=== PATIENT | female | born 1965 | race Caucasian/White ===

== ENCOUNTER 2016-12-31 11:07 | Inpatient (IN) | payer OTHER ==
[2016-12-31 11:26] VITALS: BMI 29.4
--- NOTE | 2016-12-31 13:50 | HP ---
COWS - Scale Resting Pulse: 1= [place] 81-100 Sweatin= Chills/Flushing Restless Observation: 3= Extraneous Movement Pupil Size: 2= Moderately Dilated Bone or Joint Aches: 4=Acute Joint/Muscle Pain Runny Nose/ Eye Tearin= Runny Nose/Eyes GI Upset > 30mins: 3= Vomiting/Diarrhea (no diarrhea) Tremor Observation: 1= Tremor [place], Not Seen Yawning Observation: 1= 1-2x During Session Anxiety or Irritability: 2=Irritable/Anxious Goose Flesh Skin: 3=Piloerection COWS Score: 23 Admission ROS S - [facility] Chief Complaint: DETOX TX FOR HEROIN DEPENDENCE Allergies/Adverse Reactions: Allergies Allergy/AdvReac Type Severity Reaction Status Date / Time Penicillins Allergy Verified 12/31/16 13:47 History of Present Illness: 51 Y/O H/F WITH A HX OF HEROIN DEPENDENCE SEEKING DETOX TX. FIRST TIME HERE. Exam Limitations: No Limitations - Ebola screening Have you traveled outside of the country in the last 21 days: No Have you had contact with anyone from an Ebola affected area: No Have you been sick,other than usual withdrawal symptoms: No - Review of Systems Constitutional: Chills, Loss of Appetite, Night Sweats, Changes in sleep EENT: reports: Blurred Vision (WEARS GLASSES), Tearing, Nose Congestion, Dental Problems (HX CAVITIES) Respiratory: reports: Shortness of Breath (HX ASTHMA), Wheezing Cardiac: reports: Lightheadedness GI: reports: Diarrhea, Nausea, Poor Appetite, Vomiting, Abdominal cramping : reports: No Symptoms Reported Musculoskeletal: reports: Back Pain (HX HERNIATED DISC SPINE), Joint Pain, Muscle Pain, Neck Pain (HX HERNIATED DISC OF NECK) Integumentary: reports: Pruritus (DUE TO ALLERGY BUT RESOLVED), Rash (DUE TO ALLERGY BUT RESOLVED) Neuro: reports: Tremors (DUE TO ANXIETY), Unsteady Gait (USES ROLLING WALKER), Dizziness Endocrine: reports: No Symptoms Reported Hematology: reports: No Symptoms Reported Psychiatric: reports: Orientated x3, Anxious, Depressed Other Systems: Reviewed and Negative Patient History - Patient Medical History Hx Anemia: No Hx Asthma: Yes (MDI) Hx Chronic Obstructive Pulmonary Disease (COPD): No Hx Cardiac Disorders: No Hx Hypertension: No (NOT SURE) Hx Hypercholesterolemia: Yes HX Cerebrovascular Accident: No Hx Seizures: No Hx Diabetes: No Hx Gastrointestinal Disorders: Yes (GASTRITIS/PUD) Hx Sexually Transmitted Disorders: No Hx Renal Disease (ESRD): No Hx Thyroid Disease: No Hx Human Immunodeficiency Virus (HIV): No Hx Hepatitis C: No Hx Depression: Yes Hx Suicide Attempt: No Hx Bipolar Disorder: Yes - Patient Surgical History Past Surgical History: No Hx Neurologic Surgery: No Hx Cataract Extraction: No Hx Cardiac Surgery: No Hx Lung Surgery: No Hx Breast Surgery: No Hx Breast Biopsy: No Hx Abdominal Surgery: No Hx Appendectomy: No Hx Cholecystectomy: No Hx Genitourinary Surgery: No Hx Section: No Hx Orthopedic Surgery: No Hx Hysterectomy: No Anesthesia Reaction: No - PPD History Previous Implant?: Yes Documented Results: Negative w/o proof Implanted On Prior R Admission?: No PPD to be Administered?: Yes - Reproductive History Patient is a Female of Child Bearing Age (11 -55 yrs old): Yes (POST MENOPAUSAL) LMP comment: SIX YEARS AGO Patient : No - Smoking Cessation Smoking history: Current every day smoker Have you smoked in the past 12 months: Yes Aproximately how many cigarettes per day: 10 Hx Chewing Tobacco Use: No Initiated information on smoking cessation: Yes 'Breaking Loose' booklet given: 12/31/16 - Substance & Tx. History Hx Alcohol Use: No (DENIES) Hx Substance Use: Yes (HEROIN) Substance Use Type: Heroin Hx Substance Use Treatment: No (FIRST TIME TODAY) - Substances Abused Heroin Route: Inhalation Frequency: Daily Amount used: 3-4 DAYS Age of first use: 50 Date of Last Use: 12/30/16 Family Disease History - Family Disease History Family History: Unable to Obtain Admission Physical Exam S - Vital Signs Vital Signs: Vital Signs - 24 hr 12/31/16 11:19 Temperature 97.1 F L Pulse Rate 81 Respiratory 18 Rate Blood Pressure 123/80 - Physical General Appearance: Yes: Moderate Distress, Obese, Irritable, Sweating, Anxious HEENTM: Yes: EOMI, Normocephalic, PAT, Pharynx Normal, Photophobia, Nasal Congestion, Rhinorrhea Respiratory: Yes: Chest Non-Tender, Lungs Clear, Normal Breath Sounds, No Respiratory Distress Neck: Yes: Supple, Trachea in good position Breast: Yes: Breast Exam Deferred Cardiology: Yes: Regular Rhythm, Regular Rate, S1, S2 Abdominal: Yes: Normal Bowel Sounds, Non Tender, Soft Genitourinary: Yes: Other (N/C) Back: Yes: Within Normal Limits Musculoskeletal: Yes: full range of Motion, Back pain, Muscle Pain, Other (USES WALKER TO AMBULATE) Extremities: Yes: Normal Range of Motion, Non-Tender Neurological: Yes: development officer II-XII NML intact, Fully Oriented, Alert Integumentary: Yes: Dry, Warm Lymphatic: Yes: Within Normal Limits - Diagnostic (1) Opioid dependence with withdrawal Current Visit: Yes Status: Acute (2) Asthma Current Visit: Yes Status: Chronic Qualifiers: Asthma severity: mild intermittent Asthma complication type: uncomplicated Qualified Code(s): J45.20 - Mild intermittent asthma, uncomplicated (3) Hx of gastritis Current Visit: Yes Status: Suspected (4) PUD (peptic ulcer disease) Current Visit: Yes Status: Suspected Cleared for Admission [facility] - Detox or Rehab [facility] Level of Care: Medically Managed Detox Regimen/Protocol: Methadone [facility] Breath Alcohol Content Breath Alcohol Content: 0 Urine Pregancy Test - Result Urine Test Results: Negative- NO Line Present Urine Drug Screen - Results Urine Drug Screen Results: OPI-Opiates, TCA-Tricyclic Antidepress
[2016-12-31] MEDS ORDERED: MAGNESIUM CITRATE 300 ML BOTTLE PO PRN (15:53)
[2016-12-31] MEDS ORDERED: MAG HYDROX/AL HYDROX/SIMETH 30 ML UNIT-DOSE CUP PO PRN (15:53)
[2016-12-31] MEDS ORDERED: MENTHOL/PHENOL 1 EACH UD MM PRN (15:53)
[2016-12-31] MEDS ORDERED: NICOTINE POLACRILEX 2 MG GUM BC PRN (15:53)
[2016-12-31] MEDS ORDERED: ACETAMINOPHEN 325 MG TABLET (FP) PO PRN (15:53)
[2016-12-31] MEDS ORDERED: LOPERAMIDE HCL 2 MG CAPSULE PO PRN (15:53)
[2016-12-31] MEDS ORDERED: P-EPHED 60MG/TRIPROLIDI 2.5MG TABLET PO PRN (15:53)
[2016-12-31] MEDS ORDERED: guaiFENesin/D-METHORPHAN HB 10 ML UNIT-DOSE CUPS PO PRN (15:53)
[2016-12-31] MEDS ORDERED: hydrOXYzine PAMOATE 25 MG CAPSULE (FP) PO PRN (15:53)
[2016-12-31] MEDS ORDERED: MAGNESIUM HYDROX 2400MG/30ML ORAL SUSPENSION 30 ML CUP PO PRN (15:53)
[2016-12-31] MEDS ORDERED: ALBUTEROL SO4 6.7 GM HFA INHALER IH PRN (16:00)
[2016-12-31] MEDS ORDERED: METHADONE HCL 10 MG TABLET (FOR DETOX USE ONLY) PO ONE ×2 (17:15→23:00)
[2016-12-31] MEDS: NICOTINE 14 MG/24 HOURS TOPICAL PATCH TD SCH (17:32)
[2016-12-31] MEDS: diazePAM 5 MG TABLET PO PRN ×2 (17:33→22:21)
[2016-12-31] MEDS: PANTOPRAZOLE 40 MG TABLET (FP) PO SCH (17:33)
[2016-12-31] MEDS: IBUPROFEN 400 MG TABLET (FP) PO PRN (17:33)
[2016-12-31] MEDS: CALCIUM (OYSTER SHELL) 500 MG TABLET (FP) PO SCH (17:50)
[2016-12-31] MEDS: BUDESONIDE/FORMETEROL FUMARATE 160/4.5 mcg INHALER IH SCH (17:51)
[2016-12-31] MEDS: THIAMINE HCL 100 MG TABLET (FP) PO SCH (22:21)
[2017-01-01] MEDS: diazePAM 5 MG TABLET PO PRN ×3 (01:25→22:05)
[2017-01-01] MEDS: diphenhydrAMINE HCL 50 MG CAPSULE PO PRN (01:25)
[2017-01-01] MEDS ORDERED: METHADONE HCL 10 MG TABLET (FOR DETOX USE ONLY) PO ONE (10:00)
[2017-01-01] MEDS: BUDESONIDE/FORMETEROL FUMARATE 160/4.5 mcg INHALER IH SCH (10:33)
[2017-01-01] MEDS: PANTOPRAZOLE 40 MG TABLET (FP) PO SCH (10:33)
[2017-01-01] MEDS: PRENATAL VITAMINS W/ FOLIC ACID TABLET (FP) PO SCH (10:33)
[2017-01-01] MEDS: CALCIUM (OYSTER SHELL) 500 MG TABLET (FP) PO SCH (10:33)
[2017-01-01] MEDS: IBUPROFEN 400 MG TABLET (FP) PO PRN (10:37)
[2017-01-01] MEDS: NICOTINE 14 MG/24 HOURS TOPICAL PATCH TD SCH (10:38)
--- NOTE | 2017-01-01 10:51 | PN ---
[facility] COWS - Scale Resting Pulse: 0= [place] 80 or Below Sweatin=Flushed/Facial Moisture Restless Observation: 1= Difficult to Sit Still Pupil Size: 1= Pupils >than Normal Bone or Joint Aches: 2= Severe Diffuse Aches Runny Nose/ Eye Tearin= Nasal Congestion GI Upset > 30mins: 1= Stomach Cramp Tremor Observation of Outstretched Hands: 1= Tremor [place], Not Seen Yawning Observation: 0= None Anxiety or Irritability: 2=Irritable/Anxious Goose Flesh Skin: 0=Smooth Skin COWS Score: 11 [facility] Progress Note (SOAP) Subjective: interrupted sleep, sweats, lbp Objective: 01/01/17 10:49 Vital Signs Temperature 98.2 F 01/01/17 09:55 Pulse Rate 70 01/01/17 09:55 Respiratory Rate 18 01/01/17 09:55 Blood Pressure 105/66 01/01/17 09:55 O2 Sat by Pulse Oximetry (%) pending labs pt aox3 lying in bed uses a walker to ambulate Assessment: 01/01/17 10:50 withdrawal sx's lbp / neck pain 01/01/17 10:50 Plan: cont. detox increase fluids flexeril prn cont patch
[2017-01-01 11:46] LABS: MCH 29.7 pg (25.7-33.7); MCHC 32.6 g/dl (32.0-36.0); MEAN CELL VOLUME 91.3 fl (80-96); MEAN PLT VOLUME 7.4 fl (7.5-11.1); PLATELET COUNT 485 K/MM3 (134-434); RDW 14.6 % (11.6-15.6); WHITE BLOOD COUNT 6.7 K/mm3 (4.0-10.0)
[2017-01-01 11:53] LABS: BILIRUBIN,TOTAL 0.8 mg/dL (0.2-1.0); CALCIUM 9.9 mg/dL (8.5-10.1); COCKROFT - GAULT 64.4385; CREATININE 1.2 mg/dL (0.55-1.02); TOT PROT 7.5 g/dl (6.4-8.2)
[2017-01-01 12:45] LABS: SICKLE CELL SCREEN NEGATIVE (NEGATIVE)
--- NOTE | 2017-01-01 12:55 | CONSULT ---
[facility] Psychiatric Consult - Data Date of interview: 01/01/17 Admission source: [facility] Identifying data: First admission to [facility] for this 51 y/o female seeking detox treatment for heroin dependence.Patient is single,domiciled, disabled and supported on SSI benefits. Substance Abuse History: - Smoking Cessation. Smoking history: Current every day smoker. Have you smoked in the past 12 months: Yes. Aproximately how many cigarettes per day: 10. Hx Chewing Tobacco Use: No. Initiated information on smoking cessation: Yes. 'Breaking Loose' booklet given: 12/31/16. - Substance & Tx. History. Hx Alcohol Use: No (DENIES). Hx Substance Use: Yes (HEROIN). Substance Use Type: Heroin. Hx Substance Use Treatment: No (FIRST TIME TODAY). - Substances Abused. Heroin. Route: Inhalation. Frequency: Daily. Amount used: 3-4 DAYS. Age of first use: 50. Date of Last Use: 12/30/16. Confirmed by patient. Medical History: Bronchial asthma and a history of herniated disks (cervical and lumbar spine). Psychiatric History: Patient admits to a history of psychiatric hospitalizations in [facility] and [facility] ([facility]).Diagnosed with " schizophrenia and bipolar disorder ".Ms Juan does not remember the names of her medications.She states that she gets her OPD care at the [facility] clinic.Patient denies history of suicide attempts. Physical/Sexual Abuse/Trauma History: Patient denies. Additional Comment: Urine Drug Screen Results: OPI-Opiates, TCA-Tricyclic Antidepressant.Noted. Mental Status Exam - Mental Status Exam Alert and Oriented to: Time, Place, Person Cognitive Function: Good Patient Appearance: Well Groomed Mood: Hopeful, Euthymic Affect: Appropriate, Normal Range Patient Behavior: Fatigued, Appropriate, Cooperative Speech Pattern: Clear, Appropriate Voice Loudness: Normal Thought Process: Goal Oriented Thought Disorder: Not Present Hallucinations: Denies Suicidal Ideation: Denies Homicidal Ideation: Denies Insight/Judgement: Poor Sleep: Poorly, Difficulty falling asleep Gait/Station: Other (moves around in a wheelchair) Psychiatric Findings - Problem List ([place] 1, 2,3) (1) Opioid dependence with withdrawal Current Visit: Yes Status: Acute (2) Nicotine dependence Current Visit: Yes Status: Acute (3) Substance induced mood disorder Current Visit: Yes Status: Acute (4) Schizoaffective disorder Current Visit: Yes Status: Chronic (5) Asthma Current Visit: Yes Status: Chronic Qualifiers: Asthma severity: mild intermittent Asthma complication type: uncomplicated Qualified Code(s): J45.20 - Mild intermittent asthma, uncomplicated (6) Hx of gastritis Current Visit: Yes Status: Suspected (7) PUD (peptic ulcer disease) Current Visit: Yes Status: Suspected (8) Insomnia Current Visit: Yes Status: Acute - Initial Treatment Plan Initial Treatment Plan: Psychoeducation.Detoxification.Pharmacy claims are reviewed.Noted filled scripts for depakote,lamictal,vistaril,latuda,trazodone on 11/2016 @ [facility].Will resume : depakote 500 mg po bid + latuda 20 mg po daily + trazodone 50 mg po hs.Side effects/benefits of each drug discussed with patient.She agrees with this careplan.Observation.
--- NOTE | 2017-01-01 14:02 | EKG ---
Test Reason : Blood Pressure : / mmHG Vent. Rate : 082 BPM Atrial Rate : 082 BPM P-R Int : 134 ms QRS Dur : 068 ms QT Int : 368 ms P-R-T Axes : 028 018 030 degrees QTc Int : 429 ms NORMAL SINUS RHYTHM POOR R WAVE PROGRESSION ABNORMAL ECG NO PREVIOUS ECGS AVAILABLE Confirmed by PREETI SHELTON, NETTIE ([id number]) on 01/01/2017 2:02:11 PM Referred By: Confirmed By:NETTIE ÁLVAREZ MD
[2017-01-01] MEDS: CYCLOBENZAPRINE HCL 10 MG TABLET (FP) PO PRN (22:06)
[2017-01-01] MEDS: metroNIDAZOLE 250 MG TABLET PO SCH (22:06)
[2017-01-01] MEDS: DIVALPROEX SODIUM 500 MG TABLET E.C. PO SCH (22:06)
[2017-01-01] MEDS: THIAMINE HCL 100 MG TABLET (FP) PO SCH (22:06)
[2017-01-02] MEDS: diazePAM 5 MG TABLET PO PRN ×3 (05:49→22:11)
[2017-01-02] MEDS ORDERED: FLUCONAZOLE 50 MG TABLET PO ONE (09:56)
[2017-01-02] MEDS ORDERED: METHADONE HCL 5 MG TABLET (FOR DETOX USE ONLY) PO ONE (10:00)
[2017-01-02] MEDS: CYCLOBENZAPRINE HCL 10 MG TABLET (FP) PO PRN ×2 (10:31→22:10)
[2017-01-02] MEDS: PANTOPRAZOLE 40 MG TABLET (FP) PO SCH (10:31)
[2017-01-02] MEDS: metroNIDAZOLE 250 MG TABLET PO SCH ×2 (10:31→22:11)
[2017-01-02] MEDS: BUDESONIDE/FORMETEROL FUMARATE 160/4.5 mcg INHALER IH SCH (10:31)
[2017-01-02] MEDS: DIVALPROEX SODIUM 500 MG TABLET E.C. PO SCH (10:32)
[2017-01-02] MEDS: PRENATAL VITAMINS W/ FOLIC ACID TABLET (FP) PO SCH (10:33)
[2017-01-02] MEDS: NICOTINE 14 MG/24 HOURS TOPICAL PATCH TD SCH (10:33)
[2017-01-02] MEDS: CALCIUM (OYSTER SHELL) 500 MG TABLET (FP) PO SCH (10:37)
[2017-01-02] MEDS: LURASIDONE HCL 20 MG TABLET PO SCH (10:37)
--- NOTE | 2017-01-02 13:37 | PN ---
[facility] COWS - Scale Resting Pulse: 0= [place] 80 or Below Sweatin= Chills/Flushing Restless Observation: 1= Difficult to Sit Still Pupil Size: 1= Pupils >than Normal Bone or Joint Aches: 2= Severe Diffuse Aches Runny Nose/ Eye Tearin= Nasal Congestion GI Upset > 30mins: 1= Stomach Cramp Tremor Observation of Outstretched Hands: 0= None Yawning Observation: 0= None Anxiety or Irritability: 2=Irritable/Anxious Goose Flesh Skin: 0=Smooth Skin COWS Score: 9 [facility] Progress Note (SOAP) Subjective: interrupted sleep, sweats,burning , itch in vaginal area Objective: 01/02/17 13:35 Vital Signs Temperature 98.2 F 01/02/17 10:16 Pulse Rate 76 01/02/17 10:16 Respiratory Rate 18 01/02/17 10:16 Blood Pressure 99/63 01/02/17 10:16 O2 Sat by Pulse Oximetry (%) Laboratory Tests 01/01/17 01/01/17 01/01/17 06:40 06:40 06:40 WBC 6.7 RBC 5.17 Hgb 15.4 H Hct 47.2 H MCV 91.3 MCHC 32.6 RDW 14.6 Plt Count 485 H MPV 7.4 L Sickle Cell Screen Negative Sodium 139 Potassium 5.0 Chloride 102 Carbon Dioxide 24 Anion Gap 13 BUN 19 H Creatinine 1.2 H Creat Clearance w eGFR 46.99 Random Glucose 101 Calcium 9.9 Total Bilirubin 0.8 AST 25 ALT 41 Alkaline Phosphatase 69 Total Protein 7.5 Albumin 4.0 Valproic Acid RPR Titer Nonreactive 01/02/17 06:40 WBC RBC Hgb Hct MCV MCHC RDW Plt Count MPV Sickle Cell Screen Sodium Potassium Chloride Carbon Dioxide Anion Gap BUN Creatinine Creat Clearance w eGFR Random Glucose Calcium Total Bilirubin AST ALT Alkaline Phosphatase Total Protein Albumin Valproic Acid < 3.000 L RPR Titer pt aox3 ambulating in nad Assessment: 01/02/17 13:36 withdrawal sx's vag yeast infection vs uti Plan: contt. detox increase fluids u/a, cx diflucan 150mg
[2017-01-02] MEDS: diphenhydrAMINE HCL 50 MG CAPSULE PO PRN (15:13)
--- NOTE | 2017-01-02 17:44 | PN ---
[facility] Progress Note Note: Psychiatry Attending's note : Complaint of pruritus. Depakote is discontinued Benadryl is prescribed. Insomnia is also reported. Ambien 10 mg po hs. Patient agrees with this plan. Scripts at discharge (only latuda). Patient's request.
[2017-01-02 18:36] LABS: URINE APPEARANCE CLEAR; URINE BILIRUBIN NEGATIVE (NEGATIVE); URINE BLOOD NEGATIVE (NEGATIVE); URINE COLOR STRAW; URINE GLUCOSE (UA) NEGATIVE (NEGATIVE); URINE KETONE NEGATIVE (NEGATIVE); URINE LEUK ESTERASE NEGATIVE (NEGATIVE); URINE NITRITE NEGATIVE (NEGATIVE); URINE PROTEIN NEGATIVE (NEGATIVE); URINE UROBILINOGEN NEGATIVE E.U./dl (0.2-1.0)
[2017-01-02] MEDS: ZOLPIDEM TARTRATE 5 MG TABLET PO PRN (22:10)
[2017-01-02] MEDS: THIAMINE HCL 100 MG TABLET (FP) PO SCH (22:10)
[2017-01-03] MEDS: diphenhydrAMINE HCL 50 MG CAPSULE PO PRN ×2 (01:39→13:29)
--- NOTE | 2017-01-03 09:25 | PN ---
[facility] Progress Note (SOAP) Subjective: interrupted sleep, sweats, vaginal itch Objective: 01/03/17 09:24 Vital Signs Temperature 97.2 F L 01/03/17 06:55 Pulse Rate 72 01/03/17 06:55 Respiratory Rate 18 01/03/17 06:55 Blood Pressure 98/60 01/03/17 06:55 O2 Sat by Pulse Oximetry (%) Laboratory Tests 01/01/17 01/01/17 01/01/17 06:40 06:40 06:40 WBC 6.7 RBC 5.17 Hgb 15.4 H Hct 47.2 H MCV 91.3 MCHC 32.6 RDW 14.6 Plt Count 485 H MPV 7.4 L Sickle Cell Screen Negative Sodium 139 Potassium 5.0 Chloride 102 Carbon Dioxide 24 Anion Gap 13 BUN 19 H Creatinine 1.2 H Creat Clearance w eGFR 46.99 Random Glucose 101 Calcium 9.9 Total Bilirubin 0.8 AST 25 ALT 41 Alkaline Phosphatase 69 Total Protein 7.5 Albumin 4.0 Urine Color Urine Appearance Urine pH Ur Specific [place] Urine Protein Urine Glucose (UA) Urine Ketones Urine Blood Urine Nitrite Urine Bilirubin Urine Urobilinogen Ur Leukocyte Esterase Valproic Acid RPR Titer Nonreactive 01/02/17 01/02/17 06:40 16:30 WBC RBC Hgb Hct MCV MCHC RDW Plt Count MPV Sickle Cell Screen Sodium Potassium Chloride Carbon Dioxide Anion Gap BUN Creatinine Creat Clearance w eGFR Random Glucose Calcium Total Bilirubin AST ALT Alkaline Phosphatase Total Protein Albumin Urine Color Straw Urine Appearance Clear Urine pH 5.0 Ur Specific [place] 1.013 Urine Protein Negative Urine Glucose (UA) Negative Urine Ketones Negative Urine Blood Negative Urine Nitrite Negative Urine Bilirubin Negative Urine Urobilinogen Negative Ur Leukocyte Esterase Negative Valproic Acid < 3.000 L RPR Titer pt aox3 in nad ambulating Assessment: 01/03/17 09:24 withdrawal sx's vaginal itch -u/a neg no uti Plan: cont. detox increase fluids claritin
[2017-01-03] MEDS ORDERED: METHADONE HCL 5 MG TABLET (FOR DETOX USE ONLY) PO ONE (10:00)
[2017-01-03] MEDS: LORATADINE 10 MG TABLET PO SCH (10:29)
[2017-01-03] MEDS: metroNIDAZOLE 250 MG TABLET PO SCH ×2 (10:29→22:05)
[2017-01-03] MEDS: CALCIUM (OYSTER SHELL) 500 MG TABLET (FP) PO SCH (10:30)
[2017-01-03] MEDS: LURASIDONE HCL 20 MG TABLET PO SCH (10:30)
[2017-01-03] MEDS: CYCLOBENZAPRINE HCL 10 MG TABLET (FP) PO PRN ×2 (10:30→22:05)
[2017-01-03] MEDS: PRENATAL VITAMINS W/ FOLIC ACID TABLET (FP) PO SCH (10:30)
[2017-01-03] MEDS: PANTOPRAZOLE 40 MG TABLET (FP) PO SCH (10:30)
[2017-01-03] MEDS: BUDESONIDE/FORMETEROL FUMARATE 160/4.5 mcg INHALER IH SCH (10:30)
[2017-01-03] MEDS: diazePAM 5 MG TABLET PO PRN (10:31)
[2017-01-03] MEDS: NICOTINE 14 MG/24 HOURS TOPICAL PATCH TD SCH (10:34)
[2017-01-03] MEDS: THIAMINE HCL 100 MG TABLET (FP) PO SCH (22:05)
[2017-01-03] MEDS: ZOLPIDEM TARTRATE 5 MG TABLET PO PRN (22:05)
[2017-01-03] MEDS: MICONAZOLE NITRATE 2% VAGINAL CREAM 45 GM TUBE VG SCH (22:06)
[2017-01-04] MEDS ORDERED: METHADONE HCL 10 MG TABLET (FOR DETOX USE ONLY) PO ONE (10:00)
[2017-01-04] MEDS: PRENATAL VITAMINS W/ FOLIC ACID TABLET (FP) PO SCH (10:30)
[2017-01-04] MEDS: LURASIDONE HCL 20 MG TABLET PO SCH (10:31)
[2017-01-04] MEDS: LORATADINE 10 MG TABLET PO SCH (10:31)
[2017-01-04] MEDS: PANTOPRAZOLE 40 MG TABLET (FP) PO SCH (10:31)
[2017-01-04] MEDS: CALCIUM (OYSTER SHELL) 500 MG TABLET (FP) PO SCH (10:31)
[2017-01-04] MEDS: BUDESONIDE/FORMETEROL FUMARATE 160/4.5 mcg INHALER IH SCH (10:31)
[2017-01-04] MEDS: metroNIDAZOLE 250 MG TABLET PO SCH ×2 (10:31→22:24)
[2017-01-04] MEDS: NICOTINE 14 MG/24 HOURS TOPICAL PATCH TD SCH (10:32)
--- NOTE | 2017-01-04 13:12 | PN ---
[facility] Progress Note (SOAP) Subjective: Sweating, Interrupted sleep, Stomach cramping, Back Ache. Objective: PT. A & O X 3, OBSERVED AMBULATING ON UNIT WITH WALKER. 01/04/17 13:10 Vital Signs Temperature 98.6 F 01/04/17 11:23 Pulse Rate 84 01/04/17 11:23 Respiratory Rate 18 01/04/17 11:23 Blood Pressure 119/82 01/04/17 11:23 O2 Sat by Pulse Oximetry (%) Laboratory Last Values WBC 6.7 K/mm3 (4.0-10.0) 01/01/17 06:40 RBC 5.17 M/mm3 (3.60-5.2) 01/01/17 06:40 Hgb 15.4 GM/dL (10.7-15.3) H 01/01/17 06:40 Hct 47.2 % (32.4-45.2) H 01/01/17 06:40 MCV 91.3 fl (80-96) 01/01/17 06:40 MCHC 32.6 g/dl (32.0-36.0) 01/01/17 06:40 RDW 14.6 % (11.6-15.6) 01/01/17 06:40 Plt Count 485 K/MM3 (134-434) H 01/01/17 06:40 MPV 7.4 fl (7.5-11.1) L 01/01/17 06:40 Sickle Cell Screen Negative (NEGATIVE) 01/01/17 06:40 Sodium 139 mmol/L (136-145) 01/01/17 06:40 Potassium 5.0 mmol/L (3.5-5.1) 01/01/17 06:40 Chloride 102 mmol/L (98-107) 01/01/17 06:40 Carbon Dioxide 24 mmol/L (21-32) 01/01/17 06:40 Anion Gap 13 (8-16) 01/01/17 06:40 BUN 19 mg/dL (7-18) H 01/01/17 06:40 Creatinine 1.2 mg/dL (0.55-1.02) H 01/01/17 06:40 Creat Clearance w eGFR 46.99 (>60) 01/01/17 06:40 Random Glucose 101 mg/dL (74-106) 01/01/17 06:40 Calcium 9.9 mg/dL (8.5-10.1) 01/01/17 06:40 Total Bilirubin 0.8 mg/dL (0.2-1.0) 01/01/17 06:40 AST 25 U/L (15-37) 01/01/17 06:40 ALT 41 U/L (12-78) 01/01/17 06:40 Alkaline Phosphatase 69 U/L (45-117) 01/01/17 06:40 Total Protein 7.5 g/dl (6.4-8.2) 01/01/17 06:40 Albumin 4.0 g/dl (3.4-5.0) 01/01/17 06:40 Urine Color Straw 01/02/17 16:30 Urine Appearance Clear 01/02/17 16:30 Urine pH 5.0 (5.0-8.0) 01/02/17 16:30 Ur Specific [place] 1.013 (1.001-1.035) 01/02/17 16:30 Urine Protein Negative (NEGATIVE) 01/02/17 16:30 Urine Glucose (UA) Negative (NEGATIVE) 01/02/17 16:30 Urine Ketones Negative (NEGATIVE) 01/02/17 16:30 Urine Blood Negative (NEGATIVE) 01/02/17 16:30 Urine Nitrite Negative (NEGATIVE) 01/02/17 16:30 Urine Bilirubin Negative (NEGATIVE) 01/02/17 16:30 Urine Urobilinogen Negative E.U./dl (0.2-1.0) 01/02/17 16:30 Ur Leukocyte Esterase Negative (NEGATIVE) 01/02/17 16:30 Valproic Acid < 3.000 ug/ml (50-100) L 01/02/17 06:40 RPR Titer Nonreactive (NONREACTIVE) 01/01/17 06:40 LABS NOTED. Assessment: 01/04/17 13:11 WITHDRAWAL SYMPTOMS. Plan: CONTINUE DETOX. ADVISED PATIENT TO FOLLOW-UP WITH [facility] / REHAB MEDICAL PROVIDER AFTER DISCHARGE FROM DETOX FOR ABNORMAL ADMISSION LAB VALUES.
[2017-01-04] MEDS: AMMONIUM LACTATE 12% LOTION 225 GM BOTTLE TP SCH ×2 (15:49→22:25)
[2017-01-04] MEDS: CYCLOBENZAPRINE HCL 10 MG TABLET (FP) PO PRN (18:24)
[2017-01-04] MEDS: diphenhydrAMINE HCL 50 MG CAPSULE PO PRN (18:24)
[2017-01-04] MEDS ORDERED: traZODone HCL 50 MG TABLET (FP) PO SCH (22:00)
[2017-01-04] MEDS: THIAMINE HCL 100 MG TABLET (FP) PO SCH (22:24)
[2017-01-04] MEDS: ZOLPIDEM TARTRATE 5 MG TABLET PO PRN (22:24)
[2017-01-04] MEDS: MICONAZOLE NITRATE 2% VAGINAL CREAM 45 GM TUBE VG SCH (22:25)
[2017-01-05] MEDS ORDERED: METHADONE HCL 5 MG TABLET (FOR DETOX USE ONLY) PO ONE (06:00)
[2017-01-05 06:52] VITALS: BP 107/62; PULSE 67; TEMP 98.1
[2017-01-05] MEDS: diphenhydrAMINE HCL 50 MG CAPSULE PO PRN (08:26)
--- NOTE | 2017-01-05 09:05 | PN ---
S Progress Note (SOAP) Subjective: ALERT,NO COMPLAINT Objective: 01/05/17 09:03 Vital Signs Temperature 98.1 F 01/05/17 06:51 Pulse Rate 67 01/05/17 06:51 Respiratory Rate 16 01/05/17 06:51 Blood Pressure 107/62 01/05/17 06:51 O2 Sat by Pulse Oximetry (%) Assessment: 01/05/17 09:03 DETOX COMPLETED,NO WITHDRAWAL SYMPTOM Plan: DISCHARGE TODAY,FOLLOW UP WITH [facility]
[2017-01-05] MEDS: PRENATAL VITAMINS W/ FOLIC ACID TABLET (FP) PO SCH (09:22)
[2017-01-05] MEDS: CALCIUM (OYSTER SHELL) 500 MG TABLET (FP) PO SCH (09:22)
[2017-01-05] MEDS: PANTOPRAZOLE 40 MG TABLET (FP) PO SCH (09:23)
[2017-01-05] MEDS: BUDESONIDE/FORMETEROL FUMARATE 160/4.5 mcg INHALER IH SCH (09:23)
[2017-01-05] MEDS: metroNIDAZOLE 250 MG TABLET PO SCH (09:24)
[2017-01-05] MEDS: NICOTINE 14 MG/24 HOURS TOPICAL PATCH TD SCH (09:24)
[2017-01-05] MEDS: LURASIDONE HCL 20 MG TABLET PO SCH (09:24)
[2017-01-05] MEDS: AMMONIUM LACTATE 12% LOTION 225 GM BOTTLE TP SCH (09:24)
[2017-01-05] MEDS: LORATADINE 10 MG TABLET PO SCH (09:25)
--- NOTE | 2017-01-31 10:17 | DS ---
[facility] Detox Discharge Summary Admission Date: 12/31/16 Discharge Date: 01/05/17 - History Present History: Opioid Dependence - Physical Exam Results Vital Signs: Vital Signs Temperature 98.1 F 01/05/17 06:51 Pulse Rate 67 01/05/17 06:51 Respiratory Rate 16 01/05/17 06:51 Blood Pressure 107/62 01/05/17 06:51 O2 Sat by Pulse Oximetry (%) - Treatment Hospital Course: Detox Protocol Followed, Detoxed Safely, Responded well, Discharged Condition Good - Medication Discharge Medications: Ambulatory Orders Albuterol Sulfate Inhaler - [Ventolin Hfa Inhaler -] 1 - 2 inh PO QID 12/31/16 Budesonide/Formeterol Fumarate [SYMBICORT 160/4.5mcg -] 1 inh PO DAILY 12/31/16 Calcium Carbonate [[place]-500] 500 mg PO DAILY 12/31/16 Diphenhydramine HCl [Benadryl -] 25 mg PO Q6H PRN 12/31/16 Famotidine [Pepcid -] 20 mg PO DAILY 12/31/16 Hydroxyzine HCl [Atarax -] 50 mg PO HS PRN 12/31/16 Lurasidone HCl [Latuda -] 20 mg PO DAILY 12/31/16 Tiotropium [place] [Spiriva Respimat] 4 gm IH 12/31/16 Trazodone HCl 100 mg PO HS 12/31/16 Lurasidone HCl [Latuda -] 20 mg PO DAILY #30 tablet 01/04/17 Albuterol Sulfate Inhaler - [Ventolin HFA Inhaler -] 2 puff IH Q4H PRN #1 inhaler 01/05/17 Budesonide/Formeterol Fumarate [SYMBICORT 160/4.5mcg -] 2 puff IH BID #1 inhaler 01/05/17 Pantoprazole Sodium [Protonix -] 40 mg PO DAILY #30 tab 01/05/17 - Diagnosis (1) Insomnia Status: Acute (2) Nicotine dependence Status: Chronic Qualifiers: Nicotine product type: cigarettes Substance use status: uncomplicated Qualified Code(s): F17.210 - Nicotine dependence, cigarettes, uncomplicated (3) Opioid dependence with withdrawal Status: Chronic (4) Asthma Status: Chronic Qualifiers: Asthma severity: mild intermittent Asthma complication type: uncomplicated Qualified Code(s): J45.20 - Mild intermittent asthma, uncomplicated (5) Schizoaffective disorder Status: Chronic Qualifiers: Schizoaffective disorder type: unspecified Qualified Code(s): F25.9 - Schizoaffective disorder, unspecified (6) Hx of gastritis Status: Chronic - AMA Did Patient Leave Against Medical Advice: No
== END 2017-01-05 09:58 | disposition home or self-care (01) | DRG 773 ==
LOC: YASAS 11:07 → Y6N 15:40
PROVIDERS: ADMIT Internal Medicine Addiction Medicine; ATTEND Internal Medicine Addiction Medicine
PROC: HZ2ZZZZ Detoxification Services for Substance Abuse Treatment (ICD-10-PCS; principal; 2017-01-05)
DX: F11.23 Opioid dependence with withdrawal (principal); F17.210 Nicotine dependence, cigarettes, uncomplicated; F19.24 Other psychoactive substance dependence with psychoactive substance-induced mood disorder; F25.9 Schizoaffective disorder, unspecified; G47.00 Insomnia, unspecified; J45.20 Mild intermittent asthma, uncomplicated; Z87.19 Personal history of other diseases of the digestive system
CPT/HCPCS: 36415; 80053; 80164; 81003; 85027; 85660; 86593; 87086; 93005; 93010

== ENCOUNTER 2018-10-31 10:18 | Inpatient (IN) | payer OTHER ==
[2018-10-31 10:44] VITALS: BMI 27.1
--- NOTE | 2018-10-31 11:36 | HP ---
COWS - Scale Resting Pulse: 0= [place] 80 or Below Sweatin= Chills/Flushing Restless Observation: 3= Extraneous Movement Pupil Size: 1= Pupils >than Normal Bone or Joint Aches: 2= Severe Diffuse Aches Runny Nose/ Eye Tearin= Runny Nose/Eyes GI Upset > 30mins: 2= Nausea/Diarrhea Tremor Observation: 2= Slight Tremor Visible Yawning Observation: 2= >3x During Session Anxiety or Irritability: 2=Irritable/Anxious Goose Flesh Skin: 0=Smooth Skin COWS Score: 17 CIWA Score - Admission Criteria OASAS Guidelines: Admission for Medically Managed Detox: Requires at least one of the followin. CIWA greater than 12 2. Seizures within the past 24 hours 3. Delirium tremens within the past 24 hours 4. Hallucinations within the past 24 hours 5. Acute intervention needed for co occurring medical disorder 6. Acute intervention needed for co occurring psychiatric disorder 7. Severe withdrawal that cannot be handled at a lower level of care (continued vomiting, continued diarrhea, abnormal vital signs) requiring intravenous medication and/or fluids 8. Admission ROS S - HPI Chief Complaint: i need help to stop using heroin Allergies/Adverse Reactions: Allergies Allergy/AdvReac Type Severity Reaction Status Date / Time Penicillins Allergy Severe Difficulty Verified 05/29/18 16:19 Breathing milk Allergy Intermediate Hives Verified 05/29/18 16:19 egg Allergy Hives Verified 05/29/18 16:19 History of Present Illness: this 53 years old female with heroin dependence,seeking detox,withdrawal sumptom ,last detox 05/29/18 to 06/03/18 hypercholesterol no med history of arthritis and chronic low back pain nicotine dependence multiple admissions in the past but keep relapsing bipolar disorder,insomnia,panick attack longest period of sobriety 20 years Exam Limitations: No Limitations - Ebola screening Have you traveled outside of the country in the last 21 days: No Have you had contact with anyone from an Ebola affected area: No Have you been sick,other than usual withdrawal symptoms: No Do you have a fever: No - Review of Systems Constitutional: Chills, Loss of Appetite, Malaise, Night Sweats, Changes in sleep, Weakness EENT: reports: Tearing, Nose Congestion Respiratory: reports: No Symptoms reported Cardiac: reports: No Symptoms Reported GI: reports: Diarrhea, Nausea, Vomiting, Abdominal cramping : reports: No Symptoms Reported Musculoskeletal: reports: Back Pain, Joint Pain, Muscle Pain Integumentary: reports: Dryness Neuro: reports: Headache, Tremors Endocrine: reports: No Symptoms Reported Hematology: reports: No Symptoms Reported Psychiatric: reports: No Sypmtoms Reported, Judgement Intact, Mood/Affect Appropiate, Orientated x3, other (bipolar disorder) Other Systems: Reviewed and Negative Patient History - Patient Medical History Hx Anemia: No Hx Asthma: Yes (on albuterol inhaler) Hx Chronic Obstructive Pulmonary Disease (COPD): No Hx Cardiac Disorders: No Hx Hypertension: No Hx Hypercholesterolemia: Yes (NO MEDS ) Hx Pacemaker: No HX Cerebrovascular Accident: No Hx Seizures: No Hx Diabetes: No Hx Gastrointestinal Disorders: No Hx Liver Disease: No Hx Genitourinary Disorders: No Hx Sexually Transmitted Disorders: No Hx Renal Disease (ESRD): No Hx Thyroid Disease: No Hx Human Immunodeficiency Virus (HIV): No (negative last 2017 ) Hx Hepatitis C: No Hx Depression: Yes Hx Suicide Attempt: No Hx Bipolar Disorder: Yes Hx Schizophrenia: No Other Medical History: no sucidal,no homicidal - Patient Surgical History Past Surgical History: No Hx Neurologic Surgery: No Hx Cataract Extraction: No Hx Cardiac Surgery: No Hx Lung Surgery: No Hx Breast Surgery: No Hx Breast Biopsy: No Hx Abdominal Surgery: No Hx Appendectomy: Yes (AT 40YRS AGO) Hx Cholecystectomy: No Hx Genitourinary Surgery: No Hx Section: No Hx Orthopedic Surgery: No Hx Hysterectomy: No Anesthesia Reaction: No - PPD History Previous Implant?: Yes Documented Results: Negative w/proof Implanted On Prior [facility] Admission?: Yes Date: 04/11/18 Results: 0 MM PPD to be Administered?: No - Reproductive History Patient is a Female of Child Bearing Age (11 -55 yrs old): Yes Patient : No - Smoking Cessation Smoking history: Current every day smoker Have you smoked in the past 12 months: Yes Aproximately how many cigarettes per day: 10 Hx Chewing Tobacco Use: No Initiated information on smoking cessation: Yes 'Breaking Loose' booklet given: 10/31/18 - Substance & Tx. History Hx Alcohol Use: Yes Substance Use Type: Heroin Hx Substance Use Treatment: Yes ([facility] 05/29/18 to 06/02/18) - Substances Abused Heroin Route: Inhalation Frequency: Daily Amount used: 3 bags Age of first use: 6 Date of Last Use: 10/31/18 Family Disease History - Family Disease History Family Disease History: Other: Father (, homonicide ), Mother (, during labor ) Admission Physical Exam [facility] - Vital Signs Vital Signs: Vital Signs - 24 hr 10/31/18 10:42 Temperature 97.7 F Pulse Rate 70 Respiratory 18 Rate Blood Pressure 101/71 - Physical General Appearance: Yes: Moderate Distress, Tremorous, Irritable, Sweating, Anxious HEENTM: Yes: Normal ENT Inspection, PAT, Pharynx Normal Respiratory: Yes: Lungs Clear, Normal Breath Sounds, No Respiratory Distress Neck: Yes: Within Normal Limits, No masses,lesions,Nodules, Supple Breast: Yes: Breast Exam Deferred Cardiology: Yes: Within Normal Limits, Regular Rhythm, Regular Rate, S1, S2 Abdominal: Yes: Within Normal Limits, Normal Bowel Sounds, Non Tender, Flat, Soft Genitourinary: Yes: Within Normal Limits Back: Yes: Muscle Spasm Musculoskeletal: Yes: Back pain, Joint Stiffness, Muscle Pain Extremities: Yes: Tremors Neurological: Yes: meat stuffer II-XII NML intact, Alert, Motor Strength 5/5 Integumentary: Yes: Dry Lymphatic: Yes: Within Normal Limits - Diagnostic (1) Opioid dependence with withdrawal Current Visit: No Status: Acute Comment: Self reports. (2) Asthma Current Visit: No Status: Chronic Qualifiers: Asthma severity: mild Asthma complication type: uncomplicated (3) Bipolar disorder Current Visit: No Status: Suspected Qualifiers: Active/Remission status: in partial remission Most recent bipolar episode type: mixed Qualified Code(s): F31.77 - Bipolar disorder, in partial remission , most recent episode mixed (4) Nicotine dependence Current Visit: No Status: Acute Qualifiers: Nicotine product type: cigarettes Substance use status: in withdrawal Qualified Code(s): F17.213 - Nicotine dependence, cigarettes, with withdrawal (5) Arthritis Current Visit: Yes Status: Acute (6) Hepatitis C Current Visit: Yes Status: Acute Cleared for Admission [facility] - Detox or Rehab [facility] Level of Care: Medically Managed Detox Regimen/Protocol: Methadone [facility] Breath Alcohol Content Breath Alcohol Content: 0 Urine Pregancy Test - Result Urine Test Results: Negative- NO Line Present Urine Drug Screen - Results Drug Screen Negative: No Urine Drug Screen Results: OPI-Opiates, OXY-Oxycodone, FEN-Fentanyl Inpatient Rehab Admission - Rehab Decision to Admit Inpatient rehab admission?: No
[2018-10-31] MEDS ORDERED: MAG HYDROX/AL HYDROX/SIMETH 30 ML UNIT-DOSE CUP PO PRN (11:43)
[2018-10-31] MEDS ORDERED: MAGNESIUM HYDROX 2400MG/30ML ORAL SUSPENSION 30 ML CUP PO PRN (11:43)
[2018-10-31] MEDS ORDERED: guaiFENesin/D-METHORPHAN HB 10 ML UNIT-DOSE CUPS PO PRN (11:43)
[2018-10-31] MEDS ORDERED: IBUPROFEN 400 MG TABLET (FP) PO PRN (11:43)
[2018-10-31] MEDS ORDERED: MAGNESIUM CITRATE 300 ML BOTTLE PO PRN (11:43)
[2018-10-31] MEDS ORDERED: MENTHOL/PHENOL 1 EACH UD MM PRN (11:43)
[2018-10-31] MEDS ORDERED: hydrOXYzine PAMOATE 25 MG CAPSULE (FP) PO PRN (11:43)
[2018-10-31] MEDS ORDERED: ACETAMINOPHEN 325 MG TABLET (FP) PO PRN (11:43)
[2018-10-31] MEDS ORDERED: P-EPHED 60MG/TRIPROLIDI 2.5MG TABLET PO PRN (11:43)
[2018-10-31] MEDS ORDERED: NICOTINE POLACRILEX 2 MG GUM BUC PRN (11:43)
[2018-10-31] MEDS ORDERED: LOPERAMIDE HCL 2 MG CAPSULE PO PRN (11:43)
[2018-10-31] MEDS ORDERED: METHADONE HCL 10 MG TABLET (FOR DETOX USE ONLY) PO ONE ×2 (12:00→23:00)
[2018-10-31] MEDS: diazePAM 5 MG TABLET PO PRN (12:53)
[2018-10-31] MEDS: METHYL SALICYLATE/MENTHOL OINT 30 GM TUBE TP SCH ×2 (12:53→22:40)
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
[2018-10-31] MEDS ORDERED: MELATONIN 5 MG TABLETS PO PRN (22:00)
[2018-10-31] MEDS: THIAMINE HCL 100 MG TABLET (FP) PO SCH (22:41)
[2018-10-31] MEDS: HYDROCORTISONE 0.5% TOPICAL CREAM 30 GM TUBE TP SCH (22:41)
[2018-10-31] MEDS: traZODone HCL 50 MG TABLET (FP) PO SCH (22:41)
[2018-11-01] MEDS: diazePAM 5 MG TABLET PO PRN ×2 (09:02→22:16)
[2018-11-01] MEDS: HYDROCORTISONE 0.5% TOPICAL CREAM 30 GM TUBE TP SCH ×2 (09:03→23:00)
[2018-11-01] MEDS: ESCITALOPRAM OXALATE 10 MG TABLET (FP) PO SCH (09:03)
[2018-11-01] MEDS: PRENATAL VITAMINS W/ FOLIC ACID TABLET (FP) PO SCH (09:04)
[2018-11-01] MEDS: ALBUTEROL SO4 8 GM HFA INHALER IH PRN ×2 (09:11→22:19)
[2018-11-01] MEDS: METHYL SALICYLATE/MENTHOL OINT 30 GM TUBE TP SCH ×2 (09:12→22:15)
[2018-11-01] MEDS ORDERED: METHADONE HCL 10 MG TABLET (FOR DETOX USE ONLY) PO ONE (10:00)
[2018-11-01] MEDS ORDERED: DOCUSATE SODIUM 100 MG CAPSULE (FP) PO ONE (11:30)
[2018-11-01] MEDS ORDERED: PATIENT'S OWN MEDICATION (NON-FORMULARY) (Tiotropium Bromide [Spiriva] 1 INH) IH SCH (11:30)
[2018-11-01 11:38] LABS: ALBUMIN 3.8 g/dl (3.4-5.0); ALK PHOS 78 U/L (45-117); ANION GAP 5 MMOL/L (8-16); BILIRUBIN,TOTAL 0.7 mg/dL (0.2-1); BLOOD UREA NITROGEN 19 mg/dL (7-18); CALCIUM 9.1 mg/dL (8.5-10.1); CHLORIDE 101 mmol/L (98-107); CO2 30 mmol/L (21-32); GLUCOSE,RANDOM 109 mg/dL (74-106); POTASSIUM 4.1 mmol/L (3.5-5.1); SGOT/AST 18 U/L (15-37); SGPT/ALT 26 U/L (13-61); SODIUM 136 mmol/L (136-145); TOT PROT 7.4 g/dl (6.4-8.2)
[2018-11-01 11:47] LABS: HEMATOCRIT 44.2 % (32.4-45.2); HEMOGLOBIN 14.7 GM/dL (10.7-15.3); MCHC 33.3 g/dl (32.0-36.0); MEAN CELL VOLUME 93.2 fl (80-96); MEAN PLT VOLUME 7.6 fl (7.5-11.1); PLATELET COUNT 356 K/MM3 (134-434); RBC 4.74 M/mm3 (3.60-5.2); RDW 13.9 % (11.6-15.6); WHITE BLOOD COUNT 5.6 K/mm3 (4.0-10.0)
[2018-11-01] MEDS: NICOTINE 14 MG/24 HOURS TOPICAL PATCH TD SCH (12:31)
[2018-11-01] MEDS ORDERED: TRIMETHOBENZAMIDE HCL 300 MG CAPSULE PO PRN (14:13)
--- NOTE | 2018-11-01 16:30 | PN ---
BHS COWS - Scale Resting Pulse: 0= [place] 80 or Below Sweatin= Chills/Flushing Restless Observation: 1= Difficult to Sit Still Pupil Size: 0= Normal to Room Light Bone or Joint Aches: 2= Severe Diffuse Aches Runny Nose/ Eye Tearin= None GI Upset > 30mins: 0= None Tremor Observation of Outstretched Hands: 0= None Yawning Observation: 1= 1-2x During Session Anxiety or Irritability: 4=Extreme Anxiety Goose Flesh Skin: 3=Piloerection COWS Score: 12 BHS Progress Note (SOAP) Subjective: Sweating, Body Aches, Anxious, Constipation. Objective: PATIENT A & O X 3, OBSERVED AMBULATING ON UNIT. IN NO ACUTE DISTRESS. 11/01/18 16:27 Vital Signs Temperature 97.7 F 11/01/18 13:42 Pulse Rate 62 11/01/18 13:42 Respiratory Rate 18 11/01/18 13:42 Blood Pressure 99/58 L 11/01/18 13:42 O2 Sat by Pulse Oximetry (%) Laboratory Tests 11/01/18 11/01/18 11/01/18 05:45 05:45 05:45 WBC 5.6 RBC 4.74 Hgb 14.7 Hct 44.2 MCV 93.2 MCH 31.0 MCHC 33.3 RDW 13.9 Plt Count 356 MPV 7.6 Sodium 136 Potassium 4.1 Chloride 101 Carbon Dioxide 30 Anion Gap 5 L BUN 19 H Creatinine 1.0 Creat Clearance w eGFR 57.56 Random Glucose 109 H Calcium 9.1 Total Bilirubin 0.7 AST 18 ALT 26 Alkaline Phosphatase 78 Total Protein 7.4 Albumin 3.8 RPR Titer Nonreactive LABS NOTED. Assessment: 11/01/18 16:28 WITHDRAWAL SYMPTOMS. Plan: CONTINUE DETOX. INCREASE DAILY PO FLUID INTAKE. COLACE PO BID FOR CONSTIPATION. PRN FLEXERIL PO FOR BODY ACHES / MUSCLE SPASMS. FOR TIGAN IM FOR NAUSEA.
[2018-11-01] MEDS: THIAMINE HCL 100 MG TABLET (FP) PO SCH (22:15)
[2018-11-01] MEDS: BACITRACIN 0.9 GM PACKET TP SCH (22:15)
[2018-11-01] MEDS: DOCUSATE SODIUM 100 MG CAPSULE (FP) PO SCH (22:16)
[2018-11-01] MEDS: traZODone HCL 50 MG TABLET (FP) PO SCH (22:16)
[2018-11-01] MEDS: CYCLOBENZAPRINE HCL 10 MG TABLET (FP) PO PRN (22:16)
--- NOTE | 2018-11-02 09:41 | PN ---
BHS COWS - Scale Resting Pulse: 0= MD 80 or Below Sweatin= Chills/Flushing Restless Observation: 1= Difficult to Sit Still Pupil Size: 1= Pupils >than Normal Bone or Joint Aches: 1= Mild Discomfort Runny Nose/ Eye Tearin= Nasal Congestion GI Upset > 30mins: 1= Stomach Cramp Tremor Observation of Outstretched Hands: 1= Tremor [place], Not Seen Yawning Observation: 1= 1-2x During Session Anxiety or Irritability: 1=Feels Anxious/Irritable Goose Flesh Skin: 0=Smooth Skin COWS Score: 9 BHS Progress Note (SOAP) Subjective: body aches muscle cramping tremor stuffy nose Objective: 11/02/18 09:40 Vital Signs Temperature 96 F L 11/02/18 09:35 Pulse Rate 61 11/02/18 09:35 Respiratory Rate 20 11/02/18 09:35 Blood Pressure 108/58 L 11/02/18 09:35 O2 Sat by Pulse Oximetry (%) Laboratory Last Values WBC 5.6 K/mm3 (4.0-10.0) 11/01/18 05:45 RBC 4.74 M/mm3 (3.60-5.2) 11/01/18 05:45 Hgb 14.7 GM/dL (10.7-15.3) 11/01/18 05:45 Hct 44.2 % (32.4-45.2) 11/01/18 05:45 MCV 93.2 fl (80-96) 11/01/18 05:45 MCH 31.0 pg (25.7-33.7) 11/01/18 05:45 MCHC 33.3 g/dl (32.0-36.0) 11/01/18 05:45 RDW 13.9 % (11.6-15.6) 11/01/18 05:45 Plt Count 356 K/MM3 (134-434) 11/01/18 05:45 MPV 7.6 fl (7.5-11.1) 11/01/18 05:45 Sodium 136 mmol/L (136-145) 11/01/18 05:45 Potassium 4.1 mmol/L (3.5-5.1) 11/01/18 05:45 Chloride 101 mmol/L (98-107) 11/01/18 05:45 Carbon Dioxide 30 mmol/L (21-32) 11/01/18 05:45 Anion Gap 5 MMOL/L (8-16) L 11/01/18 05:45 BUN 19 mg/dL (7-18) H 11/01/18 05:45 Creatinine 1.0 mg/dL (0.55-1.3) 11/01/18 05:45 Creat Clearance w eGFR 57.56 (>60) 11/01/18 05:45 Random Glucose 109 mg/dL (74-106) H 11/01/18 05:45 Calcium 9.1 mg/dL (8.5-10.1) 11/01/18 05:45 Total Bilirubin 0.7 mg/dL (0.2-1) 11/01/18 05:45 AST 18 U/L (15-37) 11/01/18 05:45 ALT 26 U/L (13-61) 11/01/18 05:45 Alkaline Phosphatase 78 U/L (45-117) 11/01/18 05:45 Total Protein 7.4 g/dl (6.4-8.2) 11/01/18 05:45 Albumin 3.8 g/dl (3.4-5.0) 11/01/18 05:45 RPR Titer Nonreactive (NONREACTIVE) 11/01/18 05:45 lab noted Assessment: 11/02/18 09:41 opiate withdrawal sx Plan: continue opiate detox
[2018-11-02] MEDS ORDERED: METHADONE HCL 5 MG TABLET (FOR DETOX USE ONLY) PO ONE (10:00)
[2018-11-02] MEDS: DOCUSATE SODIUM 100 MG CAPSULE (FP) PO SCH (10:36)
[2018-11-02] MEDS: CYCLOBENZAPRINE HCL 10 MG TABLET (FP) PO PRN (10:36)
[2018-11-02] MEDS: diazePAM 5 MG TABLET PO PRN (10:36)
[2018-11-02] MEDS: BACITRACIN 0.9 GM PACKET TP SCH (10:36)
[2018-11-02] MEDS: NICOTINE 14 MG/24 HOURS TOPICAL PATCH TD SCH (10:37)
[2018-11-02] MEDS: PRENATAL VITAMINS W/ FOLIC ACID TABLET (FP) PO SCH (10:37)
[2018-11-02] MEDS: METHYL SALICYLATE/MENTHOL OINT 30 GM TUBE TP SCH (10:37)
[2018-11-02] MEDS: HYDROCORTISONE 0.5% TOPICAL CREAM 30 GM TUBE TP SCH (10:37)
[2018-11-02] MEDS: ESCITALOPRAM OXALATE 10 MG TABLET (FP) PO SCH (10:46)
[2018-11-02] MEDS ORDERED: TIOTROPIUM BROMIDE 2.5 MCG (SPIRIVA) RESPIMAT INHALER IH SCH (12:15)
[2018-11-02 18:17] VITALS: BP 103/70; PULSE 85; TEMP 98.4
--- NOTE | 2018-11-02 19:41 | DS ---
[facility] Detox Discharge Summary Admission Date: 10/31/18 Discharge Date: 11/02/18 - History Additional Comments: TC from ANTOINETTE Ochoa that pt insisting on leaving the unit. Pt states "the room is too closed, I can't stay" Pt insisting on leaving despite encouragements to do so. Endorses feeling fine., denies SI, HI. Pt A & O x 3 and not in acute distress, stated her boyfriend willcome stay with her and she will go tomorrow to see her Psychiatrist Dr Duarte at [facility]. Pt also promised to follow up with her PMD at [facility]. She stated she still has all of her meds and declined refills. Pt understands that she is going to leave Against medical advice. - Physical Exam Results Vital Signs: Vital Signs Temperature 98.4 F 11/02/18 18:16 Pulse Rate 85 11/02/18 18:16 Respiratory Rate 16 11/02/18 18:16 Blood Pressure 103/70 11/02/18 18:16 O2 Sat by Pulse Oximetry (%) - Medication Discharge Medications: Ambulatory Orders Zolpidem Tartrate 10 mg PO HS 04/09/18 Buspirone HCl [Buspar -] 30 mg PO BID #60 tablet 04/10/18 Lamotrigine [Lamictal -] 25 mg PO DAILY #30 tablet 04/10/18 Quetiapine Fumarate [Seroquel -] 25 mg PO HS #30 tablet 04/10/18 traZODone HCL [Trazodone HCl] 300 mg PO HS #30 tablet 04/10/18 Tiotropium [place] [Spiriva] 1 inh IH DAILY #1 cap 04/13/18 Escitalopram Oxalate [Lexapro -] 10 mg PO DAILY 05/30/18 Albuterol Sulfate Inhaler - [Ventolin HFA Inhaler -] 2 puff IH Q4H PRN #1 inhaler 06/02/18 Naloxone HCl [Narcan] 4 mg NS ASDIR PRN 11/02/18 - AMA Did Patient Leave Against Medical Advice: Yes
[2018-11-03] MEDS ORDERED: METHADONE HCL 5 MG TABLET (FOR DETOX USE ONLY) PO ONE (10:00)
[2018-11-04] MEDS ORDERED: METHADONE HCL 10 MG TABLET (FOR DETOX USE ONLY) PO ONE (10:00)
[2018-11-05] MEDS ORDERED: METHADONE HCL 5 MG TABLET (FOR DETOX USE ONLY) PO ONE (06:00)
== END 2018-11-02 19:02 | disposition left against medical advice (07) | DRG 770 ==
LOC: YASAS 10:18 → Y3N 11:43
PROVIDERS: ADMIT Surgery; ATTEND Surgery
PROC: HZ2ZZZZ Detoxification Services for Substance Abuse Treatment (ICD-10-PCS; principal; 2018-10-31)
DX: F11.23 Opioid dependence with withdrawal (principal); F17.213 Nicotine dependence, cigarettes, with withdrawal; F31.77 Bipolar disorder, in partial remission, most recent episode mixed; F19.24 Other psychoactive substance dependence with psychoactive substance-induced mood disorder; G47.00 Insomnia, unspecified; B18.2 Chronic viral hepatitis C; Z87.39 Personal history of other diseases of the musculoskeletal system and connective tissue; M19.90 Unspecified osteoarthritis, unspecified site
CPT/HCPCS: 36415; 80053; 85027; 86593

== ENCOUNTER 2019-05-04 09:11 | Inpatient (IN) | payer OTHER ==
[2019-05-04 11:36] VITALS: BMI 35.2
--- NOTE | 2019-05-04 12:06 | HP ---
COWS - Scale Resting Pulse: 0= [place] 80 or Below Sweatin= Chills/Flushing Restless Observation: 1= Difficult to Sit Still Pupil Size: 1= Pupils >than Normal Bone or Joint Aches: 1= Mild Discomfort Runny Nose/ Eye Tearin= Nasal Congestion GI Upset > 30mins: 1= Stomach Cramp Tremor Observation: 1= Tremor [place], Not Seen Yawning Observation: 1= 1-2x During Session Anxiety or Irritability: 1=Feels Anxious/Irritable Goose Flesh Skin: 3=Piloerection COWS Score: 12 CIWA Score - Admission Criteria OASAS Guidelines: Admission for Medically Managed Detox: Requires at least one of the followin. CIWA greater than 12 2. Seizures within the past 24 hours 3. Delirium tremens within the past 24 hours 4. Hallucinations within the past 24 hours 5. Acute intervention needed for co occurring medical disorder 6. Acute intervention needed for co occurring psychiatric disorder 7. Severe withdrawal that cannot be handled at a lower level of care (continued vomiting, continued diarrhea, abnormal vital signs) requiring intravenous medication and/or fluids 8. Admission ROS S - [facility] Chief Complaint: " I am using heroin and I want to stop." Allergies/Adverse Reactions: Allergies Allergy/AdvReac Type Severity Reaction Status Date / Time Penicillins Allergy Severe Difficulty Verified 05/04/19 11:17 Breathing milk Allergy Intermediate Hives Verified 05/04/19 11:17 egg Allergy Hives Verified 05/04/19 11:17 History of Present Illness: 54 year old female with history of opioid dependence. She was last admitted on 10/2018 but did not finish her detox too much anxiety. She is using 2-3 bags, last used yesterday. She denies using any other pills. She is Psych Hx. of Bipolar Disorder: On trazadone, and something else. She last took it yesterday. PMHx: Asthma Symbicort and Albuterol MDI's Psurg Hx: None She smokes ciggarettes 10 per day for 36 years. Patient denies any legal issues. Patient has support from her boyfriend. - Ebola screening Have you traveled outside of the country in the last 21 days: No Have you had contact with anyone from an Ebola affected area: No Have you been sick,other than usual withdrawal symptoms: No Do you have a fever: No Patient History - Patient Medical History Hx Anemia: No Hx Asthma: Yes (on albuterol inhaler) Hx Chronic Obstructive Pulmonary Disease (COPD): No Hx Cardiac Disorders: No Hx Hypertension: No Hx Hypercholesterolemia: Yes (NO MEDS ) Hx Pacemaker: No HX Cerebrovascular Accident: No Hx Seizures: No Hx Diabetes: No Hx Gastrointestinal Disorders: No Hx Liver Disease: No Hx Genitourinary Disorders: No Hx Sexually Transmitted Disorders: No Hx Renal Disease (ESRD): No Hx Thyroid Disease: No Hx Human Immunodeficiency Virus (HIV): No (negative last 2017 ) Hx Hepatitis C: No Hx Depression: Yes Hx Suicide Attempt: No Hx Bipolar Disorder: Yes Hx Schizophrenia: No - Patient Surgical History Past Surgical History: No Hx Neurologic Surgery: No Hx Cataract Extraction: No Hx Cardiac Surgery: No Hx Lung Surgery: No Hx Breast Surgery: No Hx Breast Biopsy: No Hx Abdominal Surgery: No Hx Appendectomy: Yes (AT 40YRS AGO) Hx Cholecystectomy: No Hx Genitourinary Surgery: No Hx Section: No Hx Orthopedic Surgery: No Hx Hysterectomy: No Anesthesia Reaction: No - PPD History Previous Implant?: Yes Documented Results: Negative w/proof Implanted On Prior R Admission?: Yes Date: 04/11/18 Results: 0 MM PPD to be Administered?: No - Reproductive History Patient is a Female of Child Bearing Age (11 -55 yrs old): No - Smoking Cessation Smoking history: Current every day smoker Have you smoked in the past 12 months: Yes Aproximately how many cigarettes per day: 10 Hx Chewing Tobacco Use: No Initiated information on smoking cessation: Yes 'Breaking Loose' booklet given: 05/04/19 - Substance & Tx. History Hx Alcohol Use: Yes (heroin use daily) Substance Use Type: Heroin, Opiates Hx Substance Use Treatment: Yes (prior detoxes ) - Substances abused Heroin Substance route: Inhalation Frequency: Daily Amount used: 3 bags a day Age of first use: 51 Date of last use: 05/04/19 Family Disease History - Family Disease History Family Disease History: Other: Father (, homonicide ), Mother (, during labor ) Admission Physical Exam BHS - Vital Signs Vital Signs: Vital Signs - 24 hr 05/04/19 11:31 Temperature 98.4 F Pulse Rate 72 Respiratory 16 Rate Blood Pressure 114/81 - Physical General Appearance: Yes: No Apparent Distress, Nourished, Mild Distress HEENTM: Yes: EOMI, Hearing grossly Normal, Normal ENT Inspection, Normal Voice, PAT, Pharynx Normal Respiratory: Yes: Chest Non-Tender, Lungs Clear Neck: Yes: No masses,lesions,Nodules, Supple Breast: Yes: Breast Exam Deferred Cardiology: Yes: Regular Rhythm, Regular Rate Abdominal: Yes: Normal Bowel Sounds, Non Tender, Protuberent, Surgical Scar Genitourinary: Yes: Within Normal Limits Back: Yes: Within Normal Limits Musculoskeletal: Yes: full range of Motion, Gait Steady Extremities: Yes: Normal Capillary Refill, Normal Inspection, Normal Range of Motion, Non-Tender Neurological: Yes: rig operator II-XII NML intact, Fully Oriented, Motor Strength 5/5, Normal Mood/Affect, Normal Response Integumentary: Yes: Dry, Warm Lymphatic: Yes: Within Normal Limits - Diagnostic (1) Depressed mood Current Visit: Yes Status: Acute (2) Opioid dependence with withdrawal Current Visit: Yes Status: Acute Comment: Self reports. (3) Nicotine dependence Current Visit: Yes Status: Chronic Qualifiers: Nicotine product type: cigarettes Substance use status: in withdrawal Qualified Code(s): F17.213 - Nicotine dependence, cigarettes, with withdrawal Cleared for Admission [facility] - Detox or Rehab [facility] Level of Care: Medically Managed Detox Regimen/Protocol: Methadone Screened but not Admitted - Documentation of Visit Screened but not Admitted: No Breathalyzer - Breathalyzer Breathalyzer: 0 Vital Signs - Vital Signs Vital signs refused: No Temperature: 98.4 F Temperature source: Oral Pulse Rate: 72 Respiratory Rate: 16 Blood Pressure: 114/81 BP Location: Left Arm Blood Pressure position: Sitting - Height Height: 5 ft - Weight Weight: 180 lb Weight measurement method: Standing scale - BMI Body Mass Index (BMI): 35.2 - Bowel Function Bowel Movement: No Urine Drug Screen - Control Is test valid?: Yes - Results Drug screen NEGATIVE: No Urine drug screen results: THC-Marijuana, FEN-Fentanyl, MOP-Opiates, OXY- Oxycodone, MTD-Methadone Inpatient Rehab Admission - Rehab Decision to Admit Inpatient rehab admission?: No
[2019-05-04] MEDS ORDERED: MELATONIN 5 MG TABLETS PO PRN (12:12)
[2019-05-04] MEDS ORDERED: MENTHOL/PHENOL 1 EACH UD MM PRN (12:12)
[2019-05-04] MEDS ORDERED: MAGNESIUM HYDROX 2400MG/30ML ORAL SUSPENSION 30 ML CUP PO PRN (12:12)
[2019-05-04] MEDS ORDERED: ACETAMINOPHEN 325 MG TABLET (FP) PO PRN ×2 (12:12)
[2019-05-04] MEDS ORDERED: IBUPROFEN 400 MG TABLET (FP) PO PRN (12:12)
[2019-05-04] MEDS ORDERED: hydrOXYzine HCL 25 MG TABLET (FP) PO PRN (12:12)
[2019-05-04] MEDS ORDERED: cloNIDine HCL 0.1 MG TABLET PO PRN (12:12)
[2019-05-04] MEDS ORDERED: MAG HYDROX/AL HYDROX/SIMETH 30 ML UNIT-DOSE CUP PO PRN (12:12)
[2019-05-04] MEDS ORDERED: MAGNESIUM CITRATE 300 ML BOTTLE PO PRN (12:12)
[2019-05-04] MEDS ORDERED: BISMUTH SUBSALICYLATE 262 MG/15 ML BTL PO PRN (12:12)
[2019-05-04] MEDS ORDERED: ALBUTEROL SO4 8 GM HFA INHALER IH PRN (12:17)
[2019-05-04] MEDS ORDERED: PATIENT'S OWN MEDICATION (NON-FORMULARY) (Tiotropium Bromide [Spiriva] 1 INH) IH SCH (12:30)
[2019-05-04] MEDS ORDERED: METHADONE HCL 10 MG TABLET (FOR DETOX USE ONLY) PO ONE (13:00)
[2019-05-04] MEDS: NICOTINE 14 MG/24 HOURS TOPICAL PATCH TD SCH (14:20)
[2019-05-04 16:48] LABS: HEMATOCRIT 47.6 % (32.4-45.2); HEMOGLOBIN 15.7 GM/dL (10.7-15.3); MCH 30.7 pg (25.7-33.7); MCHC 33.1 g/dl (32.0-36.0); MEAN CELL VOLUME 92.7 fl (80-96); MEAN PLT VOLUME 7.3 fl (7.5-11.1); PLATELET COUNT 374 K/MM3 (134-434); RBC 5.14 M/mm3 (3.60-5.2); RDW 13.7 % (11.6-15.6); WHITE BLOOD COUNT 9.6 K/mm3 (4.0-10.0)
[2019-05-04 16:51] LABS: BILIRUBIN,TOTAL 1.1 mg/dL (0.2-1); CALCIUM 9.5 mg/dL (8.5-10.1); CREATININE 1.2 mg/dL (0.55-1.3); POTASSIUM 4.1 mmol/L (3.5-5.1); TOT PROT 7.6 g/dl (6.4-8.2)
[2019-05-04] MEDS: TIOTROPIUM BROMIDE 2.5 MCG (SPIRIVA) RESPIMAT INHALER IH SCH (17:06)
[2019-05-04] MEDS: METHOCARBAMOL 500 MG TABLET PO PRN (22:28)
[2019-05-04] MEDS: THIAMINE HCL 100 MG TABLET (FP) PO SCH (22:28)
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
[2019-05-05] MEDS ORDERED: P-EPHED 60MG/TRIPROLIDI 2.5MG TABLET PO PRN (08:55)
[2019-05-05] MEDS ORDERED: METHADONE HCL 10 MG TABLET (FOR DETOX USE ONLY) ONE (09:44)
[2019-05-05] MEDS ORDERED: METHADONE HCL 5 MG TABLET (FOR DETOX USE ONLY) ONE (09:44)
[2019-05-05] MEDS ORDERED: METHADONE (DETOX) 20 MG, METHADONE (DETOX) 5 MG PO ONE (10:00)
[2019-05-05] MEDS: ESCITALOPRAM OXALATE 10 MG TABLET (FP) PO SCH (10:35)
[2019-05-05] MEDS: GABAPENTIN 100 MG CAPSULE (FP) PO SCH ×2 (10:36→22:32)
[2019-05-05] MEDS: TIOTROPIUM BROMIDE 2.5 MCG (SPIRIVA) RESPIMAT INHALER IH SCH (10:38)
[2019-05-05] MEDS: PRENATAL VITAMINS W/ FOLIC ACID TABLET (FP) PO SCH (10:38)
[2019-05-05] MEDS: diazePAM 5 MG TABLET PO PRN (10:38)
[2019-05-05] MEDS: NICOTINE 14 MG/24 HOURS TOPICAL PATCH TD SCH (10:39)
[2019-05-05] MEDS: lamoTRIgine 100 MG TABLET (FP) PO SCH (11:01)
--- NOTE | 2019-05-05 12:32 | PN ---
BHS COWS - Scale Resting Pulse: 0= [place] 80 or Below Sweatin= Chills/Flushing Restless Observation: 1= Difficult to Sit Still Pupil Size: 0= Normal to Room Light Bone or Joint Aches: 2= Severe Diffuse Aches Runny Nose/ Eye Tearin= Nasal Congestion GI Upset > 30mins: 0= None Tremor Observation of Outstretched Hands: 2= Slight Tremor Visible Yawning Observation: 2= >3x During Session Anxiety or Irritability: 2=Irritable/Anxious Goose Flesh Skin: 0=Smooth Skin COWS Score: 11 BHS Progress Note (SOAP) Subjective: agitation anxiety sweats shakes body aches Objective: 05/05/19 12:31 Vital Signs Temperature 98.4 F 05/05/19 09:41 Pulse Rate 76 05/05/19 09:41 Respiratory Rate 18 05/05/19 09:41 Blood Pressure 107/58 L 05/05/19 09:41 O2 Sat by Pulse Oximetry (%) Laboratory Tests 05/04/19 05/04/19 12:30 12:30 WBC 9.6 RBC 5.14 Hgb 15.7 H Hct 47.6 H MCV 92.7 MCH 30.7 MCHC 33.1 RDW 13.7 Plt Count 374 MPV 7.3 L Sodium 137 Potassium 4.1 Chloride 99 Carbon Dioxide 30 Anion Gap 8 BUN 13.0 Creatinine 1.2 Est GFR (CKD-EPI)AfAm 58.51 Est GFR (CKD-EPI)NonAf 50.48 Random Glucose 84 Calcium 9.5 Total Bilirubin 1.1 H AST 13 L ALT 20 Alkaline Phosphatase 87 Total Protein 7.6 Albumin 4.0 labs noted aaox3 ambulating no acute distress Assessment: 05/05/19 12:32 withdrawal sx Plan: continue detox valium prn ordered
[2019-05-05] MEDS ORDERED: traZODone HCL 150 MG TABLET PO SCH (22:00)
[2019-05-05] MEDS: traZODone HCL 100 MG TABLET (FP) PO SCH (22:31)
[2019-05-05] MEDS: QUEtiapine FUMARATE 25 MG TABLET (FP) PO SCH (22:32)
[2019-05-05] MEDS: THIAMINE HCL 100 MG TABLET (FP) PO SCH (22:32)
[2019-05-06] MEDS ORDERED: METHADONE HCL 10 MG TABLET (FOR DETOX USE ONLY) PO ONE (10:00)
[2019-05-06] MEDS: ESCITALOPRAM OXALATE 10 MG TABLET (FP) PO SCH (10:35)
[2019-05-06] MEDS: TIOTROPIUM BROMIDE 2.5 MCG (SPIRIVA) RESPIMAT INHALER IH SCH (10:36)
[2019-05-06] MEDS: lamoTRIgine 100 MG TABLET (FP) PO SCH (10:36)
[2019-05-06] MEDS: GABAPENTIN 100 MG CAPSULE (FP) PO SCH ×2 (10:36→22:58)
[2019-05-06] MEDS: PRENATAL VITAMINS W/ FOLIC ACID TABLET (FP) PO SCH (10:36)
[2019-05-06] MEDS: NICOTINE 14 MG/24 HOURS TOPICAL PATCH TD SCH (10:36)
--- NOTE | 2019-05-06 10:42 | PN ---
S COWS - Scale Resting Pulse: 0= [place] 80 or Below Sweatin= Beads of Sweat on Face Restless Observation: 1= Difficult to Sit Still Pupil Size: 0= Normal to Room Light Bone or Joint Aches: 1= Mild Discomfort Runny Nose/ Eye Tearin= None GI Upset > 30mins: 1= Stomach Cramp Tremor Observation of Outstretched Hands: 2= Slight Tremor Visible Yawning Observation: 1= 1-2x During Session Anxiety or Irritability: 2=Irritable/Anxious Goose Flesh Skin: 0=Smooth Skin COWS Score: 11 [facility] Progress Note (SOAP) Subjective: c/o sweats, anxiety, irritability, and muscle aches. Objective: 05/06/19 10:41 Vital Signs 05/06/19 05/06/19 05/06/19 03:30 07: 09:42 Temperature 97.9 F 98.2 F Pulse Rate 70 80 Respiratory 18 18 18 Rate Blood Pressure 113/60 102/55 L Lab Results WBC 9.6 K/mm3 (4.0-10.0) 05/04/19 12:30 RBC 5.14 M/mm3 (3.60-5.2) 05/04/19 12:30 Hgb 15.7 GM/dL (10.7-15.3) H 05/04/19 12:30 Hct 47.6 % (32.4-45.2) H 05/04/19 12:30 MCV 92.7 fl (80-96) 05/04/19 12:30 MCHC 33.1 g/dl (32.0-36.0) 05/04/19 12:30 RDW 13.7 % (11.6-15.6) 05/04/19 12:30 Plt Count 374 K/MM3 (134-434) 05/04/19 12:30 Sodium 137 mmol/L (136-145) 05/04/19 12:30 Potassium 4.1 mmol/L (3.5-5.1) 05/04/19 12:30 Chloride 99 mmol/L (98-107) 05/04/19 12:30 Carbon Dioxide 30 mmol/L (21-32) 05/04/19 12:30 Anion Gap 8 MMOL/L (8-16) 05/04/19 12:30 BUN 13.0 mg/dL (7-18) 05/04/19 12:30 Creatinine 1.2 mg/dL (0.55-1.3) 05/04/19 12:30 Random Glucose 84 mg/dL (74-106) 05/04/19 12:30 Calcium 9.5 mg/dL (8.5-10.1) 05/04/19 12:30 Labs noted. Assessment: 05/06/19 10:41 AOX3, in no respiratory distress. Full ROM, ambulating in the unit. Withdrawal symptoms. Plan: continue detox.
[2019-05-06] MEDS: METHOCARBAMOL 500 MG TABLET PO PRN (12:19)
[2019-05-06] MEDS: diazePAM 5 MG TABLET PO PRN (12:19)
[2019-05-06] MEDS: traZODone HCL 100 MG TABLET (FP) PO SCH (22:58)
[2019-05-06] MEDS: QUEtiapine FUMARATE 25 MG TABLET (FP) PO SCH (22:58)
[2019-05-06] MEDS: THIAMINE HCL 100 MG TABLET (FP) PO SCH (22:58)
[2019-05-07] MEDS ORDERED: METHADONE HCL 10 MG TABLET (FOR DETOX USE ONLY) ONE (09:07)
[2019-05-07] MEDS ORDERED: METHADONE HCL 5 MG TABLET (FOR DETOX USE ONLY) ONE (09:07)
[2019-05-07] MEDS: lamoTRIgine 100 MG TABLET (FP) PO SCH (10:00)
[2019-05-07] MEDS ORDERED: METHADONE (DETOX) 10 MG, METHADONE (DETOX) 5 MG PO ONE (10:00)
[2019-05-07] MEDS: PRENATAL VITAMINS W/ FOLIC ACID TABLET (FP) PO SCH (10:01)
[2019-05-07] MEDS: ESCITALOPRAM OXALATE 10 MG TABLET (FP) PO SCH (10:01)
[2019-05-07] MEDS: NICOTINE 14 MG/24 HOURS TOPICAL PATCH TD SCH (10:02)
[2019-05-07] MEDS: GABAPENTIN 100 MG CAPSULE (FP) PO SCH ×2 (10:02→22:25)
[2019-05-07] MEDS: TIOTROPIUM BROMIDE 2.5 MCG (SPIRIVA) RESPIMAT INHALER IH SCH (10:44)
--- NOTE | 2019-05-07 11:33 | PN ---
S COWS - Scale Resting Pulse: 0= [place] 80 or Below Sweatin= Beads of Sweat on Face Restless Observation: 1= Difficult to Sit Still Pupil Size: 0= Normal to Room Light Bone or Joint Aches: 2= Severe Diffuse Aches Runny Nose/ Eye Tearin= None GI Upset > 30mins: 0= None Tremor Observation of Outstretched Hands: 0= None Yawning Observation: 1= 1-2x During Session Anxiety or Irritability: 2=Irritable/Anxious Goose Flesh Skin: 0=Smooth Skin COWS Score: 9 S Progress Note (SOAP) Subjective: c/o sweats, anxiety, and irritability. Objective: 05/07/19 11:32 Vital Signs 05/07/19 05/07/19 08:28 09:49 Temperature 97.2 F L 98.9 F Pulse Rate 55 L 67 Respiratory 18 20 Rate Blood Pressure 90/50 L 144/77 Lab Results WBC 9.6 K/mm3 (4.0-10.0) 05/04/19 12:30 RBC 5.14 M/mm3 (3.60-5.2) 05/04/19 12:30 Hgb 15.7 GM/dL (10.7-15.3) H 05/04/19 12:30 Hct 47.6 % (32.4-45.2) H 05/04/19 12:30 MCV 92.7 fl (80-96) 05/04/19 12:30 MCHC 33.1 g/dl (32.0-36.0) 05/04/19 12:30 RDW 13.7 % (11.6-15.6) 05/04/19 12:30 Plt Count 374 K/MM3 (134-434) 05/04/19 12:30 Sodium 137 mmol/L (136-145) 05/04/19 12:30 Potassium 4.1 mmol/L (3.5-5.1) 05/04/19 12:30 Chloride 99 mmol/L (98-107) 05/04/19 12:30 Carbon Dioxide 30 mmol/L (21-32) 05/04/19 12:30 Anion Gap 8 MMOL/L (8-16) 05/04/19 12:30 BUN 13.0 mg/dL (7-18) 05/04/19 12:30 Creatinine 1.2 mg/dL (0.55-1.3) 05/04/19 12:30 Random Glucose 84 mg/dL (74-106) 05/04/19 12:30 Calcium 9.5 mg/dL (8.5-10.1) 05/04/19 12:30 Labs noted. Assessment: 05/07/19 11:33 AOX3, in no respiratory distress. Full ROM, ambulating in the unit. withdrawal symptoms. Plan: continue detox.
[2019-05-07] MEDS: traZODone HCL 100 MG TABLET (FP) PO SCH (22:26)
[2019-05-07] MEDS: THIAMINE HCL 100 MG TABLET (FP) PO SCH (22:26)
[2019-05-07] MEDS: QUEtiapine FUMARATE 25 MG TABLET (FP) PO SCH (22:26)
[2019-05-08 07:17] VITALS: PULSE 63
[2019-05-08] MEDS ORDERED: METHADONE HCL 10 MG TABLET (FOR DETOX USE ONLY) PO ONE (10:00)
[2019-05-08 10:01] VITALS: BP 100/64; TEMP 97.5
[2019-05-08] MEDS: GABAPENTIN 100 MG CAPSULE (FP) PO SCH (10:23)
[2019-05-08] MEDS: ESCITALOPRAM OXALATE 10 MG TABLET (FP) PO SCH (10:23)
[2019-05-08] MEDS: PRENATAL VITAMINS W/ FOLIC ACID TABLET (FP) PO SCH (10:23)
[2019-05-08] MEDS: lamoTRIgine 100 MG TABLET (FP) PO SCH (10:23)
[2019-05-08] MEDS: NICOTINE 14 MG/24 HOURS TOPICAL PATCH TD SCH (10:24)
[2019-05-08] MEDS: TIOTROPIUM BROMIDE 2.5 MCG (SPIRIVA) RESPIMAT INHALER IH SCH (10:24)
--- NOTE | 2019-05-08 13:04 | DS ---
[facility] Detox Discharge Summary Admission Date: 05/04/19 Discharge Date: 05/08/19 - History Present History: Opioid Dependence Additional Comments: Pt is medically cleared and discharged home today. Pt completed her 4th day detox protocol and requested to be discharged today. Pt has no active withdrawal symptoms at the moment. Pt is instructed to follow-up with [facility] outpatient program and also to follow-up with her PMD. Pt verbalized understanding. Pt is alert and oriented x3 and in no acute respiratory distress. Pertinent Past History: H/O asthma and heroin use disorder. - Physical Exam Results Vital Signs: Vital Signs Temperature 97.5 F L 05/08/19 09:59 Pulse Rate 63 05/08/19 09:59 Respiratory Rate 17 05/08/19 09:59 Blood Pressure 100/64 05/08/19 09:59 O2 Sat by Pulse Oximetry (%) Vital Signs 05/08/19 05/08/19 06:00 09:59 Temperature 97.2 F L 97.5 F L Pulse Rate 63 63 Respiratory 18 17 Rate Blood Pressure 100/71 100/64 Lab Results WBC 9.6 K/mm3 (4.0-10.0) 05/04/19 12:30 RBC 5.14 M/mm3 (3.60-5.2) 05/04/19 12:30 Hgb 15.7 GM/dL (10.7-15.3) H 05/04/19 12:30 Hct 47.6 % (32.4-45.2) H 05/04/19 12:30 MCV 92.7 fl (80-96) 05/04/19 12:30 MCHC 33.1 g/dl (32.0-36.0) 05/04/19 12:30 RDW 13.7 % (11.6-15.6) 05/04/19 12:30 Plt Count 374 K/MM3 (134-434) 05/04/19 12:30 Sodium 137 mmol/L (136-145) 05/04/19 12:30 Potassium 4.1 mmol/L (3.5-5.1) 05/04/19 12:30 Chloride 99 mmol/L (98-107) 05/04/19 12:30 Carbon Dioxide 30 mmol/L (21-32) 05/04/19 12:30 Anion Gap 8 MMOL/L (8-16) 05/04/19 12:30 BUN 13.0 mg/dL (7-18) 05/04/19 12:30 Creatinine 1.2 mg/dL (0.55-1.3) 05/04/19 12:30 Random Glucose 84 mg/dL (74-106) 05/04/19 12:30 Calcium 9.5 mg/dL (8.5-10.1) 05/04/19 12:30 Labs noted. Pertinent Admission Physical Exam Findings: withdrawal symptoms. - Treatment Hospital Course: Detox Protocol Followed, Detoxed Safely, Responded well, Discharged Condition Good - Medication Discharge Medications: Ambulatory Orders Zolpidem Tartrate 10 mg PO HS 04/09/18 Buspirone HCl [Buspar -] 30 mg PO BID #60 tablet 04/10/18 Lamotrigine [Lamictal -] 25 mg PO DAILY #30 tablet 04/10/18 Quetiapine Fumarate [Seroquel -] 25 mg PO HS #30 tablet 04/10/18 traZODone HCL [Trazodone HCl] 300 mg PO HS #30 tablet 04/10/18 Tiotropium [place] [Spiriva] 1 inh IH DAILY #1 cap 04/13/18 Escitalopram Oxalate [Lexapro -] 10 mg PO DAILY 05/30/18 Albuterol Sulfate Inhaler - [Ventolin HFA Inhaler -] 2 puff IH Q4H PRN #1 inhaler 06/02/18 - Diagnosis (1) Arthritis Status: Acute (2) Hepatitis C Status: Acute (3) Asthma Status: Chronic Qualifiers: Asthma severity: mild Asthma complication type: uncomplicated (4) Nicotine dependence Status: Chronic (5) PUD (peptic ulcer disease) Status: Suspected - AMA Did Patient Leave Against Medical Advice: No BHS COWS - Scale Resting Pulse: 0= [place] 80 or Below Sweatin= No chills or Flushing Restless Observation: 1= Difficult to Sit Still Pupil Size: 0= Normal to Room Light Bone or Joint Aches: 0= None Runny Nose/ Eye Tearin= None GI Upset > 30mins: 0= None Tremor Observation of Outstretched Hands: 0= None Yawning Observation: 1= 1-2x During Session Anxiety or Irritability: 1=Feels Anxious/Irritable Goose Flesh Skin: 0=Smooth Skin COWS Score: 3
[2019-05-09] MEDS ORDERED: METHADONE HCL 5 MG TABLET (FOR DETOX USE ONLY) PO ONE (06:00)
== END 2019-05-08 11:11 | disposition home or self-care (01) | DRG 773 ==
LOC: YASAS 09:11 → Y6N 12:31
PROVIDERS: ADMIT Surgery; ATTEND Surgery
PROC: HZ2ZZZZ Detoxification Services for Substance Abuse Treatment (ICD-10-PCS; principal; 2019-05-04)
DX: F11.23 Opioid dependence with withdrawal (principal); F17.210 Nicotine dependence, cigarettes, uncomplicated; F31.77 Bipolar disorder, in partial remission, most recent episode mixed; F25.9 Schizoaffective disorder, unspecified; F19.282 Other psychoactive substance dependence with psychoactive substance-induced sleep disorder; K27.9 Peptic ulcer, site unspecified, unspecified as acute or chronic, without hemorrhage or perforation; J45.909 Unspecified asthma, uncomplicated; M19.90 Unspecified osteoarthritis, unspecified site; E78.5 Hyperlipidemia, unspecified; Z88.0 Allergy status to penicillin; Z91.011 Allergy to milk products; Z91.012 Allergy to eggs
CPT/HCPCS: 36415; 80053; 85027; 86593; J0735

== ENCOUNTER 2019-11-12 08:08 | Inpatient (IN) | payer OTHER ==
--- NOTE | 2019-11-12 08:34 | BHS.RME ---
Substance Use & Tx History - Substance Use History Opiates (Heroin) Substance amount: 5 bags Frequency of use: Daily Substance route: Inhalation (ex: sniffing or snorting) Date of Last Use: 11/12/19 Physical/Psych/Mental Status - Behavior Eye Contact: Normal - Cooperativeness Cooperativeness: Cooperative - Thinking Thought Processes: Tight - Physical Health Problems Is patient presently having any pain?: No Does patient presently have any injuries (include location): No Does patient currently have a fever: No COWS - Scale Resting Pulse: 0= [place] 80 or Below Sweatin= No chills or Flushing Restless Observation: 1= Difficult to Sit Still Pupil Size: 0= Normal to Room Light Bone or Joint Aches: 1= Mild Discomfort Runny Nose/ Eye Tearin= Runny Nose/Eyes GI Upset > 30mins: 2= Nausea/Diarrhea Tremor Observation: 1= Tremor [place], Not Seen Yawning Observation: 0= None Anxiety or Irritability: 1=Feels Anxious/Irritable Goose Flesh Skin: 0=Smooth Skin COWS Score: 8
[2019-11-12 09:11] VITALS: BMI 30.2
--- NOTE | 2019-11-12 09:30 | HP ---
COWS - Scale Resting Pulse: 0= [place] 80 or Below Sweatin= No chills or Flushing Restless Observation: 1= Difficult to Sit Still Pupil Size: 0= Normal to Room Light Bone or Joint Aches: 1= Mild Discomfort Runny Nose/ Eye Tearin= Runny Nose/Eyes GI Upset > 30mins: 2= Nausea/Diarrhea Tremor Observation: 1= Tremor [place], Not Seen Yawning Observation: 0= None Anxiety or Irritability: 1=Feels Anxious/Irritable Goose Flesh Skin: 0=Smooth Skin COWS Score: 8 CIWA Score - Admission Criteria OASAS Guidelines: Admission for Medically Managed Detox: Requires at least one of the followin. CIWA greater than 12 2. Seizures within the past 24 hours 3. Delirium tremens within the past 24 hours 4. Hallucinations within the past 24 hours 5. Acute intervention needed for co occurring medical disorder 6. Acute intervention needed for co occurring psychiatric disorder 7. Severe withdrawal that cannot be handled at a lower level of care (continued vomiting, continued diarrhea, abnormal vital signs) requiring intravenous medication and/or fluids 8. Admitting History and Physical - Admission Chief Complaint: Ms. Juan presents to [facility] requesting a detox admission for heroin use. History of Present Illness: Ms. Juan presents to [facility] requesting a detox admission for heroin use. She was last here in April of 2019, completed a 4 day detox. She was then abstinent for about 3 mos and has recently relapsed. PMH: chronic low back and neck pain, asthma Psych: bipolar, anxiety, depression, insomnia. Substance use history Heroin: began at the age of 50 y, sniffs, last use today. Overdose x 2, last OD one year ago. Has narcan at home. Was on Suboxone 3 years ago[address] Has purchased [address] methadone to avoid withdrawal sx Cannabis: rare hit on a joint History Source: Patient Limitations to Obtaining History: No Limitations, Other (turkish and Albanian speaking) - Past Medical History ...: No Musculoskeletal: Yes: Chronic low back pain - Smoking History Smoking history: Current every day smoker Have you smoked in the past 12 months: Yes Aproximately how many cigarettes per day: 8 - Alcohol/Substance Use Hx Alcohol Use: Yes (heroin use daily) Admission ROS [facility] Allergies/Adverse Reactions: Allergies Allergy/AdvReac Type Severity Reaction Status Date / Time Penicillins Allergy Severe Difficulty Verified 11/12/19 08:55 Breathing milk Allergy Intermediate Hives Verified 11/12/19 08:55 egg Allergy Hives Verified 11/12/19 08:55 Exam Limitations: No Limitations - Ebola screening Have you traveled outside of the country in the last 21 days: No Have you had contact with anyone from an Ebola affected area: No Have you been sick,other than usual withdrawal symptoms: No Do you have a fever: No - Review of Systems Constitutional: No Symptoms Reported EENT: reports: Nose Congestion Respiratory: reports: No Symptoms reported Cardiac: reports: Other (tenderness, sternal x one month) GI: reports: Nausea : reports: No Symptoms Reported Musculoskeletal: reports: Back Pain Integumentary: reports: No Symptoms Reported Neuro: reports: No Symptoms reported Endocrine: reports: No Symptoms Reported Hematology: reports: No Symptoms Reported Psychiatric: reports: Agitated, Anxious, Depressed Patient History - Patient Medical History Hx Anemia: No Hx Asthma: Yes Hx Chronic Obstructive Pulmonary Disease (COPD): No Hx Cardiac Disorders: No Hx Hypertension: No Hx Hypercholesterolemia: Yes (NO MEDS ) Hx Pacemaker: No HX Cerebrovascular Accident: No Hx Seizures: No Hx Diabetes: No Hx Gastrointestinal Disorders: No Hx Liver Disease: No Hx Genitourinary Disorders: No Hx Sexually Transmitted Disorders: No Hx Renal Disease (ESRD): No Hx Thyroid Disease: No Hx Human Immunodeficiency Virus (HIV): No (negative last 2017 ) Hx Hepatitis C: No Hx Depression: Yes Hx Suicide Attempt: No Hx Bipolar Disorder: Yes Hx Schizophrenia: No - Patient Surgical History Past Surgical History: No Hx Neurologic Surgery: No Hx Cataract Extraction: No Hx Cardiac Surgery: No Hx Lung Surgery: No Hx Breast Surgery: No Hx Breast Biopsy: No Hx Abdominal Surgery: No Hx Appendectomy: Yes (AT 40YRS AGO) Hx Cholecystectomy: No Hx Genitourinary Surgery: No Hx Section: No Hx Orthopedic Surgery: No Hx Hysterectomy: No Anesthesia Reaction: No - PPD History Documented Results: Negative w/proof Date: 04/11/18 Results: 0 MM - Reproductive History Patient : No - Smoking Cessation Smoking history: Current every day smoker Have you smoked in the past 12 months: Yes Aproximately how many cigarettes per day: 8 Cigars Per Day: 0 Hx Chewing Tobacco Use: No Initiated information on smoking cessation: Yes 'Breaking Loose' booklet given: 11/12/19 - Substances abused Heroin Substance route: Inhalation Frequency: Daily Amount used: 5 bags Age of first use: 49 Date of last use: 11/12/19 Admission Physical Exam [facility] - Vital Signs Vital Signs: Vital Signs - 24 hr 11/12/19 08:52 Temperature 97.4 F L Pulse Rate 67 Respiratory 18 Rate Blood Pressure 133/91 - Physical General Appearance: Yes: Mild Distress HEENTM: Yes: Hearing grossly Normal, Normal Voice Respiratory: Yes: Lungs Clear, Normal Breath Sounds Neck: Yes: Within Normal Limits Breast: Yes: Breast Exam Deferred Cardiology: Yes: Regular Rate, S1, S2, Other (tender to touch upper sternum) Abdominal: Yes: Normal Bowel Sounds, Non Tender, Flat, Soft Genitourinary: Yes: Other (deferred) Back: Yes: Normal Inspection Musculoskeletal: Yes: Within Normal Limits Extremities: Yes: Within Normal Limits Neurological: Yes: Alert Integumentary: Yes: Other (right ankle tattoo) Cleared for Admission [facility] - Detox or Rehab [facility] Level of Care: Medically Managed Breathalyzer - Breathalyzer Breathalyzer: 0 Urine Drug Screen - Test Device Lot number: [id number] Expiration date: 01/20/21 - Control Is test valid?: Yes - Results Drug screen NEGATIVE: No Urine drug screen results: THC-Marijuana, FEN-Fentanyl, MOP-Opiates, OXY- Oxycodone, MTD-Methadone Inpatient Rehab Admission - Rehab Decision to Admit Inpatient rehab admission?: No
[2019-11-12] MEDS ORDERED: ALBUTEROL SO4 HFA INHALER IH PRN (09:33)
[2019-11-12] MEDS ORDERED: METHOCARBAMOL 500 MG TABLET PO PRN (09:34)
[2019-11-12] MEDS ORDERED: MAGNESIUM HYDROX 2400MG/30ML ORAL SUSPENSION 30 ML CUP PO PRN (09:34)
[2019-11-12] MEDS ORDERED: ACETAMINOPHEN 325 MG TABLET (FP) PO PRN (09:34)
[2019-11-12] MEDS ORDERED: MENTHOL/PHENOL 1 EACH UD MM PRN (09:34)
[2019-11-12] MEDS ORDERED: IBUPROFEN 400 MG TABLET (FP) PO PRN (09:34)
[2019-11-12] MEDS ORDERED: BISMUTH SUBSALICYLATE 262 MG/15 ML BTL PO PRN (09:34)
[2019-11-12] MEDS ORDERED: MAGNESIUM CITRATE 300 ML BOTTLE PO PRN (09:34)
[2019-11-12] MEDS ORDERED: MAG HYDROX/AL HYDROX/SIMETH 30 ML UNIT-DOSE CUP PO PRN (09:34)
[2019-11-12] MEDS ORDERED: METHADONE HCL 10 MG TABLET (FOR DETOX USE ONLY) PO ONE (09:50)
[2019-11-12] MEDS: NICOTINE 7 MG/24 HOURS TOPICAL PATCH TD SCH (10:46)
[2019-11-12] MEDS: PRENATAL VITAMINS W/ FOLIC ACID TABLET (FP) PO SCH (10:46)
[2019-11-12 15:08] LABS: HEMATOCRIT 42.2 % (32.4-45.2); MCH 30.5 pg (25.7-33.7); MCHC 33.1 g/dl (32.0-36.0); MEAN CELL VOLUME 92.2 fl (80-96); MEAN PLT VOLUME 7.5 fl (7.5-11.1); PLATELET COUNT 370 K/MM3 (134-434); RBC 4.58 M/mm3 (3.60-5.2); RDW 13.6 % (11.6-15.6); WHITE BLOOD COUNT 6.1 K/mm3 (4.0-10.0)
[2019-11-12] MEDS: cloNIDine HCL 0.1 MG TABLET PO PRN (15:33)
[2019-11-12] MEDS: hydrOXYzine PAMOATE 25 MG CAPSULE (FP) PO PRN (15:33)
[2019-11-12 15:41] LABS: ALBUMIN 3.6 g/dl (3.4-5.0); BILIRUBIN,TOTAL 0.6 mg/dL (0.2-1); BLOOD UREA NITROGEN 20.5 mg/dL (7-18); CALCIUM 9.6 mg/dL (8.5-10.1); CREATININE 1.1 mg/dL (0.55-1.3); POTASSIUM 4.4 mmol/L (3.5-5.1); TOT PROT 6.8 g/dl (6.4-8.2)
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
[2019-11-12] MEDS: SUVOREXANT 10 MG TABLET PO PRN (22:25)
[2019-11-12] MEDS: THIAMINE HCL 100 MG TABLET (FP) PO SCH (22:25)
[2019-11-13] MEDS ORDERED: METHADONE HCL 5 MG TABLET (FOR DETOX USE ONLY) ONE (09:43)
[2019-11-13] MEDS ORDERED: METHADONE HCL 10 MG TABLET (FOR DETOX USE ONLY) ONE (09:43)
[2019-11-13] MEDS ORDERED: METHADONE (DETOX) 20 MG, METHADONE (DETOX) 5 MG PO ONE (10:00)
[2019-11-13] MEDS: ESCITALOPRAM OXALATE 10 MG TABLET PO SCH (10:45)
[2019-11-13] MEDS: ARIPiprazole 5 MG TABLET PO SCH (10:45)
[2019-11-13] MEDS: PRENATAL VITAMINS W/ FOLIC ACID TABLET (FP) PO SCH (10:45)
--- NOTE | 2019-11-13 10:45 | EKG ---
Test Reason : Blood Pressure : / mmHG Vent. Rate : 052 BPM Atrial Rate : 052 BPM P-R Int : 150 ms QRS Dur : 080 ms QT Int : 408 ms P-R-T Axes : 059 025 026 degrees QTc Int : 379 ms SINUS BRADYCARDIA WHEN COMPARED WITH ECG OF 29-MAY-2018 19:54, NO SIGNIFICANT CHANGE WAS FOUND Confirmed by MARY PRINCE MD ([id number]) on 11/13/2019 10:45:27 AM Referred By: Confirmed By:MARY PRINCE MD
[2019-11-13] MEDS: NICOTINE 7 MG/24 HOURS TOPICAL PATCH TD SCH (10:46)
--- NOTE | 2019-11-13 11:33 | PN ---
BHS COWS - Scale Resting Pulse: 0= [place] 80 or Below Sweatin= No chills or Flushing Restless Observation: 1= Difficult to Sit Still Pupil Size: 1= Pupils >than Normal Bone or Joint Aches: 1= Mild Discomfort Runny Nose/ Eye Tearin= Nasal Congestion GI Upset > 30mins: 1= Stomach Cramp Tremor Observation of Outstretched Hands: 1= Tremor [place], Not Seen Yawning Observation: 1= 1-2x During Session Anxiety or Irritability: 2=Irritable/Anxious Goose Flesh Skin: 0=Smooth Skin COWS Score: 9 S Progress Note (SOAP) Subjective: alert,irritable,anxious,interrupted sleep,pain in the body Objective: 11/13/19 11:31 Vital Signs Temperature 97.1 F L 11/13/19 08:45 Pulse Rate 69 11/13/19 10:47 Respiratory Rate 18 11/13/19 10:47 Blood Pressure 108/77 11/13/19 10:47 O2 Sat by Pulse Oximetry (%) Laboratory Last Values WBC 6.1 K/mm3 (4.0-10.0) 11/12/19 09:30 RBC 4.58 M/mm3 (3.60-5.2) 11/12/19 09:30 Hgb 14.0 GM/dL (10.7-15.3) 11/12/19 09:30 Hct 42.2 % (32.4-45.2) 11/12/19 09:30 MCV 92.2 fl (80-96) 11/12/19 09:30 MCH 30.5 pg (25.7-33.7) 11/12/19 09:30 MCHC 33.1 g/dl (32.0-36.0) 11/12/19 09:30 RDW 13.6 % (11.6-15.6) 11/12/19 09:30 Plt Count 370 K/MM3 (134-434) 11/12/19 09:30 MPV 7.5 fl (7.5-11.1) 11/12/19 09:30 Sodium 138 mmol/L (136-145) 11/12/19 09:30 Potassium 4.4 mmol/L (3.5-5.1) 11/12/19 09:30 Chloride 105 mmol/L (98-107) 11/12/19 09:30 Carbon Dioxide 28 mmol/L (21-32) 11/12/19 09:30 Anion Gap 4 MMOL/L (8-16) L 11/12/19 09:30 BUN 20.5 mg/dL (7-18) H 11/12/19 09:30 Creatinine 1.1 mg/dL (0.55-1.3) 11/12/19 09:30 Est GFR (CKD-EPI)AfAm 65.00 11/12/19 09:30 Est GFR (CKD-EPI)NonAf 56.08 11/12/19 09:30 Random Glucose 79 mg/dL (74-106) 11/12/19 09:30 Calcium 9.6 mg/dL (8.5-10.1) 11/12/19 09:30 Total Bilirubin 0.6 mg/dL (0.2-1) 11/12/19 09:30 AST 19 U/L (15-37) 11/12/19 09:30 ALT 24 U/L (13-61) 11/12/19 09:30 Alkaline Phosphatase 67 U/L (45-117) 11/12/19 09:30 Total Protein 6.8 g/dl (6.4-8.2) 11/12/19 09:30 Albumin 3.6 g/dl (3.4-5.0) 11/12/19 09:30 POC Urine HCG, Qual Negative 11/12/19 09:42 Assessment: 11/13/19 11:32 withdrawal symptom Plan: continue detox methadone regimen
[2019-11-13] MEDS: cloNIDine HCL 0.1 MG TABLET PO PRN (17:32)
[2019-11-13] MEDS: THIAMINE HCL 100 MG TABLET (FP) PO SCH (22:21)
[2019-11-13] MEDS: MELATONIN 5 MG TABLETS PO PRN (22:21)
[2019-11-14] MEDS: hydrOXYzine PAMOATE 25 MG CAPSULE (FP) PO PRN ×3 (04:11→22:10)
[2019-11-14] MEDS: ACETAMINOPHEN 325 MG TABLET (FP) PO PRN (04:11)
[2019-11-14] MEDS ORDERED: METHADONE HCL 10 MG TABLET (FOR DETOX USE ONLY) PO ONE (10:00)
[2019-11-14] MEDS: ARIPiprazole 5 MG TABLET PO SCH (10:38)
[2019-11-14] MEDS: ESCITALOPRAM OXALATE 10 MG TABLET PO SCH (10:38)
[2019-11-14] MEDS: PRENATAL VITAMINS W/ FOLIC ACID TABLET (FP) PO SCH (10:38)
[2019-11-14] MEDS: NICOTINE 7 MG/24 HOURS TOPICAL PATCH TD SCH (10:39)
--- NOTE | 2019-11-14 12:01 | PN ---
BHS COWS - Scale Resting Pulse: 0= [place] 80 or Below Sweatin= Chills/Flushing Restless Observation: 1= Difficult to Sit Still Pupil Size: 0= Normal to Room Light Bone or Joint Aches: 2= Severe Diffuse Aches Runny Nose/ Eye Tearin= None GI Upset > 30mins: 1= Stomach Cramp Tremor Observation of Outstretched Hands: 0= None Yawning Observation: 1= 1-2x During Session Anxiety or Irritability: 2=Irritable/Anxious Goose Flesh Skin: 0=Smooth Skin COWS Score: 8 BHS Progress Note (SOAP) Subjective: c/o anxiety, irritability, sweats, and muscle aches. Objective: 11/14/19 12:02 Vital Signs 11/14/19 07:50 Temperature 97.6 F Pulse Rate 52 L Respiratory 16 Rate Blood Pressure 102/68 Laboratory Last Values WBC 6.1 K/mm3 (4.0-10.0) 11/12/19 09:30 RBC 4.58 M/mm3 (3.60-5.2) 11/12/19 09:30 Hgb 14.0 GM/dL (10.7-15.3) 11/12/19 09:30 Hct 42.2 % (32.4-45.2) 11/12/19 09:30 MCV 92.2 fl (80-96) 11/12/19 09:30 MCH 30.5 pg (25.7-33.7) 11/12/19 09:30 MCHC 33.1 g/dl (32.0-36.0) 11/12/19 09:30 RDW 13.6 % (11.6-15.6) 11/12/19 09:30 Plt Count 370 K/MM3 (134-434) 11/12/19 09:30 MPV 7.5 fl (7.5-11.1) 11/12/19 09:30 Sodium 138 mmol/L (136-145) 11/12/19 09:30 Potassium 4.4 mmol/L (3.5-5.1) 11/12/19 09:30 Chloride 105 mmol/L (98-107) 11/12/19 09:30 Carbon Dioxide 28 mmol/L (21-32) 11/12/19 09:30 Anion Gap 4 MMOL/L (8-16) L 11/12/19 09:30 BUN 20.5 mg/dL (7-18) H 11/12/19 09:30 Creatinine 1.1 mg/dL (0.55-1.3) 11/12/19 09:30 Est GFR (CKD-EPI)AfAm 65.00 11/12/19 09:30 Est GFR (CKD-EPI)NonAf 56.08 11/12/19 09:30 Random Glucose 79 mg/dL (74-106) 11/12/19 09:30 Calcium 9.6 mg/dL (8.5-10.1) 11/12/19 09:30 Total Bilirubin 0.6 mg/dL (0.2-1) 11/12/19 09:30 AST 19 U/L (15-37) 11/12/19 09:30 ALT 24 U/L (13-61) 11/12/19 09:30 Alkaline Phosphatase 67 U/L (45-117) 11/12/19 09:30 Total Protein 6.8 g/dl (6.4-8.2) 11/12/19 09:30 Albumin 3.6 g/dl (3.4-5.0) 11/12/19 09:30 POC Urine HCG, Qual Negative 11/12/19 09:42 RPR Titer Nonreactive (NONREACTIVE) 11/12/19 09:30 Labs noted. Assessment: 11/14/19 12:02 AOX3, in no acute respiratory distress. Full ROM, ambulating in the unit. Withdrawal symptoms. Plan: continue detox.
[2019-11-14] MEDS ORDERED: NICOTINE POLACRILEX 2 MG GUM BUC PRN (18:13)
[2019-11-14] MEDS: THIAMINE HCL 100 MG TABLET (FP) PO SCH (22:10)
[2019-11-14] MEDS: SUVOREXANT 10 MG TABLET PO PRN (22:10)
[2019-11-14] MEDS: TOLNAFTATE 1% CREAM 15 GM TUBE TP SCH (22:12)
[2019-11-15] MEDS: ACETAMINOPHEN 325 MG TABLET (FP) PO PRN ×2 (06:30→22:03)
[2019-11-15] MEDS: hydrOXYzine PAMOATE 25 MG CAPSULE (FP) PO PRN ×2 (06:31→22:03)
--- NOTE | 2019-11-15 09:34 | PN ---
BHS COWS - Scale Resting Pulse: 0= [place] 80 or Below Sweatin= Chills/Flushing Restless Observation: 0= Sits Still Pupil Size: 1= Pupils >than Normal Bone or Joint Aches: 1= Mild Discomfort Runny Nose/ Eye Tearin= None GI Upset > 30mins: 0= None Tremor Observation of Outstretched Hands: 1= Tremor [place], Not Seen Yawning Observation: 0= None Anxiety or Irritability: 1=Feels Anxious/Irritable Goose Flesh Skin: 0=Smooth Skin COWS Score: 5 BHS Progress Note (SOAP) Subjective: 54 years old female admitted on 11/12/19 for opiate withdrawal sx management treating with methadone detox regiment feeling ok today reports trouble sleep at night difficulty to keep awake during the day belsomra 15 mg po x 1 Objective: 11/15/19 09:34 Vital Signs Temperature 98.1 F 11/15/19 08:30 Pulse Rate 60 11/15/19 08:30 Respiratory Rate 18 11/15/19 08:30 Blood Pressure 100/66 11/15/19 08:30 O2 Sat by Pulse Oximetry (%) Laboratory Last Values WBC 6.1 K/mm3 (4.0-10.0) 11/12/19 09:30 RBC 4.58 M/mm3 (3.60-5.2) 11/12/19 09:30 Hgb 14.0 GM/dL (10.7-15.3) 11/12/19 09:30 Hct 42.2 % (32.4-45.2) 11/12/19 09:30 MCV 92.2 fl (80-96) 11/12/19 09:30 MCH 30.5 pg (25.7-33.7) 11/12/19 09:30 MCHC 33.1 g/dl (32.0-36.0) 11/12/19 09:30 RDW 13.6 % (11.6-15.6) 11/12/19 09:30 Plt Count 370 K/MM3 (134-434) 11/12/19 09:30 MPV 7.5 fl (7.5-11.1) 11/12/19 09:30 Sodium 138 mmol/L (136-145) 11/12/19 09:30 Potassium 4.4 mmol/L (3.5-5.1) 11/12/19 09:30 Chloride 105 mmol/L (98-107) 11/12/19 09:30 Carbon Dioxide 28 mmol/L (21-32) 11/12/19 09:30 Anion Gap 4 MMOL/L (8-16) L 11/12/19 09:30 BUN 20.5 mg/dL (7-18) H 11/12/19 09:30 Creatinine 1.1 mg/dL (0.55-1.3) 11/12/19 09:30 Est GFR (CKD-EPI)AfAm 65.00 11/12/19 09:30 Est GFR (CKD-EPI)NonAf 56.08 11/12/19 09:30 Random Glucose 79 mg/dL (74-106) 11/12/19 09:30 Calcium 9.6 mg/dL (8.5-10.1) 11/12/19 09:30 Total Bilirubin 0.6 mg/dL (0.2-1) 11/12/19 09:30 AST 19 U/L (15-37) 11/12/19 09:30 ALT 24 U/L (13-61) 11/12/19 09:30 Alkaline Phosphatase 67 U/L (45-117) 11/12/19 09:30 Total Protein 6.8 g/dl (6.4-8.2) 11/12/19 09:30 Albumin 3.6 g/dl (3.4-5.0) 11/12/19 09:30 POC Urine HCG, Qual Negative 11/12/19 09:42 RPR Titer Nonreactive (NONREACTIVE) 11/12/19 09:30 lab noted Assessment: 11/15/19 09:34 opiate withdrawal Plan: methadone regiment picking up narcan from pharmacy upon discharge from detox
[2019-11-15] MEDS ORDERED: METHADONE HCL 10 MG TABLET (FOR DETOX USE ONLY) ONE (09:45)
[2019-11-15] MEDS ORDERED: METHADONE HCL 5 MG TABLET (FOR DETOX USE ONLY) ONE (09:46)
[2019-11-15] MEDS ORDERED: METHADONE (DETOX) 10 MG, METHADONE (DETOX) 5 MG PO ONE (10:00)
[2019-11-15] MEDS: NICOTINE 7 MG/24 HOURS TOPICAL PATCH TD SCH (10:04)
[2019-11-15] MEDS: TOLNAFTATE 1% CREAM 15 GM TUBE TP SCH ×2 (10:05→23:40)
[2019-11-15] MEDS: ARIPiprazole 5 MG TABLET PO SCH (10:06)
[2019-11-15] MEDS: ESCITALOPRAM OXALATE 10 MG TABLET PO SCH (10:06)
[2019-11-15] MEDS: PRENATAL VITAMINS W/ FOLIC ACID TABLET (FP) PO SCH (10:06)
[2019-11-15] MEDS ORDERED: SUVOREXANT 5 MG TABLET PO ONE (22:00)
[2019-11-15] MEDS: THIAMINE HCL 100 MG TABLET (FP) PO SCH (22:03)
[2019-11-15] MEDS: MELATONIN 5 MG TABLETS PO PRN (22:04)
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
[2019-11-16 09:09] VITALS: BP 114/78; PULSE 69; TEMP 98.6
[2019-11-16] MEDS: ARIPiprazole 5 MG TABLET PO SCH (09:22)
[2019-11-16] MEDS: PRENATAL VITAMINS W/ FOLIC ACID TABLET (FP) PO SCH (09:23)
[2019-11-16] MEDS: ESCITALOPRAM OXALATE 10 MG TABLET PO SCH (09:23)
[2019-11-16] MEDS: TOLNAFTATE 1% CREAM 15 GM TUBE TP SCH (09:24)
[2019-11-16] MEDS: NICOTINE 7 MG/24 HOURS TOPICAL PATCH TD SCH (09:24)
[2019-11-16] MEDS ORDERED: METHADONE HCL 10 MG TABLET (FOR DETOX USE ONLY) PO ONE (10:00)
[2019-11-17] MEDS ORDERED: METHADONE HCL 5 MG TABLET (FOR DETOX USE ONLY) PO ONE (06:00)
== END 2019-11-16 09:40 | disposition home or self-care (01) | DRG 773 ==
LOC: YASAS 08:08 → Y3N 09:41
PROVIDERS: ADMIT Allergy & Immunology; ATTEND Allergy & Immunology
PROC: HZ2ZZZZ Detoxification Services for Substance Abuse Treatment (ICD-10-PCS; principal; 2019-11-12)
DX: F11.23 Opioid dependence with withdrawal (principal); F17.210 Nicotine dependence, cigarettes, uncomplicated; F31.77 Bipolar disorder, in partial remission, most recent episode mixed; F19.282 Other psychoactive substance dependence with psychoactive substance-induced sleep disorder; F19.24 Other psychoactive substance dependence with psychoactive substance-induced mood disorder; F41.9 Anxiety disorder, unspecified; J45.20 Mild intermittent asthma, uncomplicated; E78.5 Hyperlipidemia, unspecified; B18.2 Chronic viral hepatitis C; G47.00 Insomnia, unspecified; M54.2 Cervicalgia; M54.5 Low back pain; G89.29 Other chronic pain; Z88.0 Allergy status to penicillin; Z91.012 Allergy to eggs; Z91.011 Allergy to milk products
CPT/HCPCS: 36415; 80053; 81025; 85027; 86593; 93005; 93010; J0735

== ENCOUNTER 2020-06-02 17:14 | Inpatient (IN) | payer OTHER ==
[2020-06-02 18:13] VITALS: BMI 29.2
--- NOTE | 2020-06-02 21:30 | HP ---
COWS - Scale Resting Pulse: 0= [place] 80 or Below Sweatin=Flushed/Facial Moisture Restless Observation: 0= Sits Still Pupil Size: 0= Normal to Room Light Bone or Joint Aches: 4=Acute Joint/Muscle Pain Runny Nose/ Eye Tearin= Runny Nose/Eyes GI Upset > 30mins: 1= Stomach Cramp Tremor Observation: 2= Slight Tremor Visible Yawning Observation: 0= None Anxiety or Irritability: 2=Irritable/Anxious Goose Flesh Skin: 0=Smooth Skin COWS Score: 13 CIWA Score - Admission Criteria OAS Guidelines: Admission for Medically Managed Detox: Requires at least one of the followin. CIWA greater than 12 2. Seizures within the past 24 hours 3. Delirium tremens within the past 24 hours 4. Hallucinations within the past 24 hours 5. Acute intervention needed for co occurring medical disorder 6. Acute intervention needed for co occurring psychiatric disorder 7. Severe withdrawal that cannot be handled at a lower level of care (continued vomiting, continued diarrhea, abnormal vital signs) requiring intravenous medication and/or fluids 8. Admitting History and Physical - Past Medical History Musculoskeletal: Yes: Chronic low back pain - Smoking History Smoking history: Current every day smoker Have you smoked in the past 12 months: Yes Aproximately how many cigarettes per day: 8 - Alcohol/Substance Use Hx Alcohol Use: Yes (heroin use daily) Admission [facility] Chief Complaint: Heroin withdrawal symptoms Allergies/Adverse Reactions: Allergies Allergy/AdvReac Type Severity Reaction Status Date / Time Penicillins Allergy Severe Difficulty Verified 06/02/20 21:29 Breathing milk Allergy Intermediate Hives Verified 06/02/20 21:29 egg Allergy Hives Verified 06/02/20 21:29 History of Present Illness: 55 years old female with 3 years of heroin dependence is seeking admission to detox. Her last amission was for the period 11/12/2019- 11/16/2019 and she relapsed in December 2019. She uses 5-6 bags of heroin daily. She has medical history of low back pain, asthma, GERD, hyperlipidemia, rheumatoid arthritis, psych. history of bipolar disorder, anxiety, insomnia and depression. She denies suicidal ideation at this time. She is on disability, lives in an apartment in the [place] and denies legal issues. She denies blackouts and overdose. Exam Limitations: No Limitations - Ebola screening Have you traveled outside of the country in the last 21 days: No Have you had contact with anyone from an Ebola affected area: No Have you been sick,other than usual withdrawal symptoms: No Do you have a fever: No - Review of Systems Constitutional: Chills, Loss of Appetite, Malaise, Night Sweats EENT: reports: No Symptoms Reported Respiratory: reports: No Symptoms reported Cardiac: reports: No Symptoms Reported GI: reports: Nausea, Poor Appetite, Poor Fluid Intake, Abdominal cramping : reports: No Symptoms Reported Musculoskeletal: reports: Back Pain, Muscle Pain Integumentary: reports: Dryness, Flushing Neuro: reports: Headache, Tremors Endocrine: reports: No Symptoms Reported Hematology: reports: No Symptoms Reported Psychiatric: reports: Mood/Affect Appropiate, Orientated x3, Anxious Other Systems: Reviewed and Negative Patient History - Patient Medical History Hx Anemia: No Hx Asthma: Yes (Albuterol) Hx Chronic Obstructive Pulmonary Disease (COPD): No Hx Cardiac Disorders: No Hx Hypertension: No Hx Hypercholesterolemia: Yes (Not on medication) Hx Pacemaker: No HX Cerebrovascular Accident: No Hx Seizures: No Hx Diabetes: No Hx Gastrointestinal Disorders: Yes (GERD) Hx Liver Disease: No Hx Genitourinary Disorders: No Hx Sexually Transmitted Disorders: No Hx Renal Disease (ESRD): No Hx Thyroid Disease: No Hx Human Immunodeficiency Virus (HIV): No (negative last 2017 ) Hx Hepatitis C: No Hx Depression: Yes Hx Suicide Attempt: No Hx Bipolar Disorder: Yes Hx Schizophrenia: No Other Medical History: low back pain, rheumathoid arthritis - Patient Surgical History Past Surgical History: Yes Hx Neurologic Surgery: No Hx Cataract Extraction: No Hx Cardiac Surgery: No Hx Lung Surgery: No Hx Breast Surgery: No Hx Breast Biopsy: No Hx Abdominal Surgery: No Hx Appendectomy: Yes (AT 40YRS AGO) Hx Cholecystectomy: No Hx Genitourinary Surgery: No Hx Section: No Hx Orthopedic Surgery: No Hx Hysterectomy: No Anesthesia Reaction: No - PPD History Previous Implant?: Yes Implanted On Prior [facility] Admission?: Yes Date: 11/14/19 Results: 0 MM PPD to be Administered?: No - Reproductive History Patient is a Female of Child Bearing Age (11 -55 yrs old): Yes LMP comment: 12 years ago - Smoking Cessation Smoking history: Current every day smoker Have you smoked in the past 12 months: Yes Aproximately how many cigarettes per day: 10 Cigars Per Day: 0 Hx Chewing Tobacco Use: No Initiated information on smoking cessation: Yes 'Breaking Loose' booklet given: 06/02/20 - Substance & Tx. History Hx Alcohol Use: No Hx Substance Use: Yes Substance Use Type: Heroin, Marijuana, Opiates Hx Substance Use Treatment: Yes ([facility]) - Substances abused Heroin Substance route: Inhalation Frequency: Daily Amount used: 5-6 bags Age of first use: 52 Date of last use: 06/01/20 Admission Physical Exam [facility] - Vital Signs Vital Signs: Vital Signs - 24 hr 06/02/20 18:10 Temperature 97.9 F Pulse Rate 58 L Respiratory 18 Rate Blood Pressure 107/68 - Physical General Appearance: Yes: Moderate Distress, Tremorous, Anxious HEENTM: Yes: Within Normal Limits Respiratory: Yes: Lungs Clear, Normal Breath Sounds, No Respiratory Distress Neck: Yes: Within Normal Limits Breast: Yes: Breast Exam Deferred Cardiology: Yes: Bradycardia Abdominal: Yes: Within Normal Limits Genitourinary: Yes: Within Normal Limits Back: Yes: Normal Inspection Musculoskeletal: Yes: Back pain, Muscle Pain Extremities: Yes: Tremors Neurological: Yes: Within Normal Limits Integumentary: Yes: Warm Lymphatic: Yes: Within Normal Limits - Diagnostic (1) Uncomplicated opioid dependence Current Visit: Yes Status: Acute (2) Anxiety disorder Current Visit: Yes Status: Chronic (3) Asthma Current Visit: Yes Status: Chronic Qualifiers: Asthma severity: mild Asthma persistence: intermittent Asthma complication type: uncomplicated Qualified Code(s): J45.20 - Mild intermittent asthma, uncomplicated (4) Bipolar disorder Current Visit: Yes Status: Chronic Qualifiers: Active/Remission status: in partial remission Most recent bipolar episode type: mixed Qualified Code(s): F31.77 - Bipolar disorder, in partial remission, most recent episode mixed Comment: As per self-report. On medications. (5) Gastritis Current Visit: No Status: Chronic (6) HLD (hyperlipidemia) Current Visit: Yes Status: Chronic Qualifiers: Hyperlipidemia type: pure hypertriglyceridemia Qualified Code(s): E78.1 - Pure hyperglyceridemia (7) Insomnia Current Visit: Yes Status: Chronic (8) Nicotine dependence Current Visit: Yes Status: Chronic Qualifiers: Nicotine product type: cigarettes Substance use status: in withdrawal Qualified Code(s): F17.213 - Nicotine dependence, cigarettes, with withdrawal Cleared for Admission BHS - Detox or Rehab [facility] Level of Care: Medically Managed Detox Regimen/Protocol: Methadone Claeared for Rehab Admission: No Breathalyzer - Breathalyzer Breathalyzer: 0 Urine Drug Screen - Test Device Lot number: [id number] Expiration date: 04/26/22 - Control Is test valid?: Yes - Results Drug screen NEGATIVE: No Urine drug screen results: THC-Marijuana, FEN-Fentanyl, MOP-Opiates, MTD- Methadone Inpatient Rehab Admission - Rehab Decision to Admit Inpatient rehab admission?: No
[2020-06-02] MEDS ORDERED: NICOTINE POLACRILEX 2 MG GUM BUC PRN (21:50)
[2020-06-02] MEDS ORDERED: MAG HYDROX/AL HYDROX/SIMETH 30 ML UNIT-DOSE CUP PO PRN (21:50)
[2020-06-02] MEDS ORDERED: BISMUTH SUBSALICYLATE 524 MG/30 ML UD PO PRN (21:50)
[2020-06-02] MEDS ORDERED: ONDANSETRON *ODT* 4 MG TABLET SL PRN (21:50)
[2020-06-02] MEDS ORDERED: ACETAMINOPHEN 325 MG TABLET (FP) PO PRN (21:50)
[2020-06-02] MEDS ORDERED: MAGNESIUM CITRATE 300 ML BOTTLE PO PRN (21:50)
[2020-06-02] MEDS ORDERED: MAGNESIUM HYDROX 2400MG/30ML ORAL SUSPENSION 30 ML CUP PO PRN (21:50)
[2020-06-02] MEDS ORDERED: METHADONE HCL 10 MG TABLET (FOR DETOX USE ONLY) PO ONE (21:50)
[2020-06-02] MEDS ORDERED: IBUPROFEN 400 MG TABLET (FP) PO PRN (21:50)
[2020-06-02] MEDS ORDERED: MENTHOL/PHENOL 1 EACH UD MM PRN (21:50)
[2020-06-02] MEDS ORDERED: ALBUTEROL SO4 HFA INHALER IH PRN (21:55)
[2020-06-02] MEDS ORDERED: METHADONE (DETOX) 20 MG, METHADONE (DETOX) 5 MG PO ONE (22:30)
[2020-06-02] MEDS ORDERED: METHADONE HCL 10 MG TABLET (FOR DETOX USE ONLY) ONE (22:58)
[2020-06-02] MEDS ORDERED: METHADONE HCL 5 MG TABLET (FOR DETOX USE ONLY) ONE (22:59)
[2020-06-02] MEDS: hydrOXYzine PAMOATE 25 MG CAPSULE (FP) PO SCH (23:05)
[2020-06-02] MEDS: MELATONIN 5 MG TABLETS PO SCH (23:05)
[2020-06-02] MEDS: THIAMINE HCL 100 MG TABLET (FP) PO SCH (23:05)
[2020-06-03] MEDS: hydrOXYzine PAMOATE 25 MG CAPSULE (FP) PO SCH ×5 (06:23→22:13)
--- NOTE | 2020-06-03 09:29 | PN ---
S COWS - Scale Resting Pulse: 0= [place] 80 or Below Sweatin= No chills or Flushing Restless Observation: 0= Sits Still Pupil Size: 0= Normal to Room Light Bone or Joint Aches: 2= Severe Diffuse Aches Runny Nose/ Eye Tearin= None GI Upset > 30mins: 0= None Tremor Observation of Outstretched Hands: 0= None Yawning Observation: 0= None Anxiety or Irritability: 0= None Goose Flesh Skin: 0=Smooth Skin COWS Score: 2 BHS Progress Note (SOAP) Subjective: Patient is a 55 y/o female with complicated pmhx who is presenting for detox from heroin. No acute complaints. Objective: 06/03/20 09:29 Vital Signs Temperature 97.3 F L 06/03/20 05:30 Pulse Rate 57 L 06/03/20 05:30 Respiratory Rate 18 06/03/20 05:30 Blood Pressure 96/60 06/03/20 05:30 O2 Sat by Pulse Oximetry (%) 97 06/03/20 05:30 Physical Exam general: WNNL, awake, alert HEENT: hearing intact, normocephalic Neuro: ROM intact, gait unobserved skin: intact dry Active Medications Acetaminophen (Tylenol -) 650 mg PO Q6H PRN PRN Reason: PAIN LEVEL 4 - 6 Acetaminophen (Tylenol -) 650 mg PO Q6H PRN PRN Reason: FEVER Al Hydroxide/Mg Hydroxide (Mylanta Oral Suspension -) 30 ml PO Q6H PRN PRN Reason: DYSPEPSIA Albuterol Sulfate (Ventolin Hfa Inhaler -) 2 puff IH Q4H PRN PRN Reason: SHORTNESS OF BREATH Bismuth Subsalicylate (Pepto-Bismol -) 524 mg PO Q1H PRN PRN Reason: DIARRHEA Eucalyptus/Menthol/Phenol/Sorbitol (Cepastat Lozenge -) 1 each MM Q4H PRN PRN Reason: SORE THROAT Stop: 06/08/20 21:50 Hydroxyzine Pamoate (Vistaril -) 25 mg PO Q4HWA KEITH Stop: 06/08/20 21:51 Last Admin: 06/03/20 06:23 Dose: Not Given Documented by: Ibuprofen (Motrin -) 400 mg PO Q6H PRN PRN Reason: PAIN LEVEL 1 - 3 Magnesium Citrate (Citroma -) 300 ml PO Q48H PRN PRN Reason: CONSTIPATION Magnesium Hydroxide (Milk Of Magnesia -) 30 ml PO PRN PRN PRN Reason: CONSTIPATION Melatonin (Melatonin) 5 mg PO [facility] Last Admin: 06/02/20 23:05 Dose: 5 mg Documented by: Methadone HCl (Dolophine -) 5 mg PO ONCE ONE Stop: 06/06/20 10:01 Methadone HCl (Dolophine -) 15 mg PO ONCE ONE Stop: 06/04/20 10:01 Methadone HCl (Dolophine -) 20 mg PO ONCE ONE Stop: 06/03/20 10:01 Methadone HCl (Dolophine -) 10 mg PO ONCE ONE Stop: 06/05/20 10:01 Methocarbamol (Robaxin -) 500 mg PO Q6H PRN PRN Reason: MUSCLE SPASMS Stop: 06/08/20 21:50 Nicotine (Nicoderm Patch -) 14 mg TD DAILY [facility] Nicotine Polacrilex (Nicorette Gum -) 2 mg BUC Q2H PRN PRN Reason: NICOTINE REPLACEMENT RX Ondansetron HCl (Zofran Odt -) 4 mg SL Q8H PRN PRN Reason: Nausea/Vomiting Multivit/Folic Acid/Iron ( Vitamins (Sjr) -) 1 tab PO DAILY [facility] Thiamine HCl (Vitamin B1 -) 100 mg PO [facility] Last Admin: 06/02/20 23:05 Dose: 100 mg Documented by: Assessment: 06/03/20 09:30 1. heroin dependence with withdrawl 2. anxiety Plan: 1. Continue MEthadone for heroin detox 2. f/u with psychiatry
[2020-06-03] MEDS ORDERED: METHADONE HCL 10 MG TABLET (FOR DETOX USE ONLY) PO ONE (10:00)
[2020-06-03] MEDS: PRENATAL VITAMINS W/ FOLIC ACID TABLET (FP) PO SCH (10:29)
[2020-06-03] MEDS: NICOTINE 14 MG/24 HOURS TOPICAL PATCH TD SCH (10:30)
[2020-06-03 10:45] LABS: HEMATOCRIT 42.5 % (32.4-45.2); MCH 30.2 pg (25.7-33.7); MCHC 32.8 g/dl (32.0-36.0); MEAN PLT VOLUME 7.5 fl (7.5-11.1); PLATELET COUNT 301 K/MM3 (134-434); RBC 4.62 M/mm3 (3.60-5.2); RDW 13.3 % (11.6-15.6); WHITE BLOOD COUNT 5.6 K/mm3 (4.0-10.0)
[2020-06-03 10:56] LABS: ALBUMIN 3.2 g/dl (3.4-5.0); BILIRUBIN,TOTAL 0.8 mg/dL (0.2-1); BLOOD UREA NITROGEN 24.9 mg/dL (7-18); CALCIUM 8.5 mg/dL (8.5-10.1); CREATININE 1.1 mg/dL (0.55-1.3); POTASSIUM 4.1 mmol/L (3.5-5.1)
--- NOTE | 2020-06-03 12:08 | PN ---
BHS Progress Note Note: Pt states she feels she is wheezing, low back pain PE Mild expiratory wheeze on ausculation CV: S1S2, no rub/murmur Ext: nl back exam Imp 1. Mild asthma 2. Back pain Plan 1. Has order for albuterol 2. Robaxin prn back pain
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
[2020-06-03] MEDS: METHOCARBAMOL 500 MG TABLET PO PRN (14:33)
--- NOTE | 2020-06-03 14:48 | EKG ---
Test Reason : Blood Pressure : / mmHG Vent. Rate : 045 BPM Atrial Rate : 045 BPM P-R Int : 158 ms QRS Dur : 074 ms QT Int : 438 ms P-R-T Axes : 023 037 043 degrees QTc Int : 378 ms SINUS BRADYCARDIA POOR DATA QUALITY, INTERPRETATION MAY BE ADVERSELY AFFECTED WHEN COMPARED WITH ECG OF 02-JUN-2020 21:01, NO SIGNIFICANT CHANGE WAS FOUND Confirmed by MARY PRINCE MD ([id number]) on 06/03/2020 2:47:48 PM Referred By: Adam Sultana Confirmed By:MARY PRINCE MD
[2020-06-03] MEDS: ACETAMINOPHEN 325 MG TABLET (FP) PO PRN (19:01)
[2020-06-03] MEDS: traZODone HCL 50 MG TABLET (FP) PO SCH (22:13)
[2020-06-03] MEDS: THIAMINE HCL 100 MG TABLET (FP) PO SCH (22:14)
[2020-06-03] MEDS: MELATONIN 5 MG TABLETS PO SCH (22:14)
[2020-06-04] MEDS: hydrOXYzine PAMOATE 25 MG CAPSULE (FP) PO SCH ×5 (07:32→22:20)
[2020-06-04] MEDS ORDERED: METHADONE HCL 5 MG TABLET (FOR DETOX USE ONLY) PO ONE (10:00)
[2020-06-04] MEDS: ESCITALOPRAM OXALATE 10 MG TABLET PO SCH (10:08)
[2020-06-04] MEDS: ARIPiprazole 5 MG TABLET PO SCH (10:08)
[2020-06-04] MEDS: PRENATAL VITAMINS W/ FOLIC ACID TABLET (FP) PO SCH (10:08)
[2020-06-04] MEDS ORDERED: MASKS NR ONE (10:41)
[2020-06-04] MEDS: NICOTINE 14 MG/24 HOURS TOPICAL PATCH TD SCH (11:09)
--- NOTE | 2020-06-04 13:40 | PN ---
BHS COWS - Scale Resting Pulse: 0= [place] 80 or Below Sweatin= No chills or Flushing Restless Observation: 0= Sits Still Pupil Size: 0= Normal to Room Light Bone or Joint Aches: 4=Acute Joint/Muscle Pain Runny Nose/ Eye Tearin= None GI Upset > 30mins: 0= None Tremor Observation of Outstretched Hands: 0= None Yawning Observation: 0= None Anxiety or Irritability: 2=Irritable/Anxious Goose Flesh Skin: 0=Smooth Skin COWS Score: 6 BHS Progress Note (SOAP) Subjective: c/o muscle aches and anxiety. Objective: 06/04/20 13:40 Vital Signs 06/04/20 06/04/20 06:35 08:54 Temperature 97.7 F 96.8 F L Pulse Rate 75 54 L Respiratory 20 17 Rate Blood Pressure 112/79 128/77 O2 Sat by Pulse 98 Oximetry (%) Laboratory Last Values WBC 5.6 K/mm3 (4.0-10.0) 06/03/20 08:10 RBC 4.62 M/mm3 (3.60-5.2) 06/03/20 08:10 Hgb 14.0 GM/dL (10.7-15.3) 06/03/20 08:10 Hct 42.5 % (32.4-45.2) 06/03/20 08:10 MCV 92.0 fl (80-96) 06/03/20 08:10 MCH 30.2 pg (25.7-33.7) 06/03/20 08:10 MCHC 32.8 g/dl (32.0-36.0) 06/03/20 08:10 RDW 13.3 % (11.6-15.6) 06/03/20 08:10 Plt Count 301 K/MM3 (134-434) 06/03/20 08:10 MPV 7.5 fl (7.5-11.1) 06/03/20 08:10 Sodium 139 mmol/L (136-145) 06/03/20 08:10 Potassium 4.1 mmol/L (3.5-5.1) 06/03/20 08:10 Chloride 105 mmol/L (98-107) 06/03/20 08:10 Carbon Dioxide 27 mmol/L (21-32) 06/03/20 08:10 Anion Gap 7 MMOL/L (8-16) L 06/03/20 08:10 BUN 24.9 mg/dL (7-18) H 06/03/20 08:10 Creatinine 1.1 mg/dL (0.55-1.3) 06/03/20 08:10 Est GFR (CKD-EPI)AfAm 64.54 06/03/20 08:10 Est GFR (CKD-EPI)NonAf 55.69 06/03/20 08:10 Random Glucose 92 mg/dL (74-106) 06/03/20 08:10 Calcium 8.5 mg/dL (8.5-10.1) 06/03/20 08:10 Total Bilirubin 0.8 mg/dL (0.2-1) 06/03/20 08:10 AST 17 U/L (15-37) 06/03/20 08:10 ALT 22 U/L (13-61) 06/03/20 08:10 Alkaline Phosphatase 51 U/L (45-117) 06/03/20 08:10 Total Protein 6.0 g/dl (6.4-8.2) L 06/03/20 08:10 Albumin 3.2 g/dl (3.4-5.0) L 06/03/20 08:10 POC Urine HCG, Qual Negative 06/02/20 18:00 Syphilis Serology Non-reactive (NONREACTIVE) 06/03/20 08:10 COVID-19 ([facility]) Not detected (Not Detected) 06/02/20 20:25 Labs noted. Assessment: 06/04/20 13:40 AOX3, in no acute respiratory distress. Full ROM, ambulating in the unit. Withdrawal symptoms. Plan: continue detox.
[2020-06-04] MEDS: ACETAMINOPHEN 325 MG TABLET (FP) PO PRN (15:15)
[2020-06-04] MEDS: METHOCARBAMOL 500 MG TABLET PO PRN (15:16)
[2020-06-04] MEDS: MELATONIN 5 MG TABLETS PO SCH (22:20)
[2020-06-04] MEDS: traZODone HCL 50 MG TABLET (FP) PO SCH (22:20)
[2020-06-04] MEDS: THIAMINE HCL 100 MG TABLET (FP) PO SCH (22:21)
[2020-06-05] MEDS: hydrOXYzine PAMOATE 25 MG CAPSULE (FP) PO SCH ×5 (06:53→22:44)
[2020-06-05] MEDS: PRENATAL VITAMINS W/ FOLIC ACID TABLET (FP) PO SCH (09:15)
[2020-06-05] MEDS: ESCITALOPRAM OXALATE 10 MG TABLET PO SCH (09:16)
[2020-06-05] MEDS: NICOTINE 14 MG/24 HOURS TOPICAL PATCH TD SCH (09:18)
--- NOTE | 2020-06-05 09:38 | PN ---
BHS COWS - Scale Resting Pulse: 0= [place] 80 or Below Sweatin= No chills or Flushing Restless Observation: 0= Sits Still Pupil Size: 0= Normal to Room Light Bone or Joint Aches: 1= Mild Discomfort Runny Nose/ Eye Tearin= None GI Upset > 30mins: 1= Stomach Cramp Tremor Observation of Outstretched Hands: 1= Tremor [place], Not Seen Yawning Observation: 0= None Anxiety or Irritability: 1=Feels Anxious/Irritable Goose Flesh Skin: 0=Smooth Skin COWS Score: 4 BHS Progress Note (SOAP) Subjective: 55 years old female was admitted on 06/02/20 for opiate withdrawal sx management treating with methadone detox regiment feels better today less body aches mild stomach cramping 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 prn rescue pump from pharmacy discussing medication assisted treatment program Objective: 06/05/20 09:41 Vital Signs - 24 hr 06/04/20 06/04/20 06/04/20 12:48 17:06 20:57 Temperature 97.7 F 97.3 F L 97.9 F Pulse Rate 67 62 58 L Respiratory 18 18 17 Rate Blood Pressure 106/77 122/71 130/76 O2 Sat by Pulse 98 98 Oximetry (%) 06/05/20 06:16 Temperature 96.6 F L Pulse Rate 51 L Respiratory 18 Rate Blood Pressure 96/64 O2 Sat by Pulse 96 Oximetry (%) Laboratory Tests 06/02/20 06/02/20 06/03/20 18:00 20:25 08:10 WBC RBC Hgb Hct MCV MCH MCHC RDW Plt Count MPV Sodium Potassium Chloride Carbon Dioxide Anion Gap BUN Creatinine Est GFR (CKD-EPI)AfAm Est GFR (CKD-EPI)NonAf Random Glucose Calcium Total Bilirubin AST ALT Alkaline Phosphatase Total Protein Albumin POC Urine HCG, Qual Negative Syphilis Serology Non-reactive COVID-19 ([facility]) Not detected 06/03/20 06/03/20 08:10 08:10 WBC 5.6 RBC 4.62 Hgb 14.0 Hct 42.5 MCV 92.0 MCH 30.2 MCHC 32.8 RDW 13.3 Plt Count 301 MPV 7.5 Sodium 139 Potassium 4.1 Chloride 105 Carbon Dioxide 27 Anion Gap 7 L BUN 24.9 H Creatinine 1.1 Est GFR (CKD-EPI)AfAm 64.54 Est GFR (CKD-EPI)NonAf 55.69 Random Glucose 92 Calcium 8.5 Total Bilirubin 0.8 AST 17 ALT 22 Alkaline Phosphatase 51 Total Protein 6.0 L Albumin 3.2 L POC Urine HCG, Qual Syphilis Serology COVID-19 ([facility]) 06/05/20 09:42 bun elevation discuss benefits of oral hydration and follow up with community health service for repeat bun Assessment: 06/05/20 09:43 opiate withdrawal Plan: methadone regiment
[2020-06-05] MEDS ORDERED: METHADONE HCL 10 MG TABLET (FOR DETOX USE ONLY) PO ONE (10:00)
[2020-06-05] MEDS: ARIPiprazole 5 MG TABLET PO SCH (13:15)
[2020-06-05] MEDS: ACETAMINOPHEN 325 MG TABLET (FP) PO PRN (18:27)
[2020-06-05] MEDS: MELATONIN 5 MG TABLETS PO SCH (22:44)
[2020-06-05] MEDS: THIAMINE HCL 100 MG TABLET (FP) PO SCH (22:44)
[2020-06-05] MEDS: traZODone HCL 50 MG TABLET (FP) PO SCH (22:44)
[2020-06-05 23:15] VITALS: TEMP 97.2
[2020-06-06] MEDS: hydrOXYzine PAMOATE 25 MG CAPSULE (FP) PO SCH ×2 (06:26→09:34)
[2020-06-06] MEDS: PRENATAL VITAMINS W/ FOLIC ACID TABLET (FP) PO SCH (09:01)
[2020-06-06] MEDS: ARIPiprazole 5 MG TABLET PO SCH (09:01)
[2020-06-06] MEDS: NICOTINE 14 MG/24 HOURS TOPICAL PATCH TD SCH (09:02)
[2020-06-06] MEDS: ESCITALOPRAM OXALATE 10 MG TABLET PO SCH (09:03)
--- NOTE | 2020-06-06 09:39 | DS ---
[facility] Discharge Summary Admission Date: 06/02/20 Discharge Date: 06/06/20 - History Present History: Opioid Dependence Additional Comments: 55 years old female was admitted on 06/02/20 for opiate withdrawal sx management treated with methadone detox regiment seen by psychiatrist ashley edmonds ms bahena has completed methadone regiment and is tolerated well General Appearance: Yes: Within Normal Limits, no Distress HEENTM: Yes: Hearing grossly Normal, Normal ENT Inspection, Normocephalic Respiratory: Yes: Within Normal Limits, Normal Breath Sounds, No Respiratory Distress, No Accessory Muscle Use Neck: Yes: Within Normal Limits Cardiology: Yes: Regular Rhythm, Regular Rate Abdominal: Yes: Normal Bowel Sounds, Non Tender, Flat, Soft Back: Yes: Normal Inspection Musculoskeletal: Yes: Within Normal Limits, full range of Motion Extremities: Yes: Non-Tender, Pedal Edema (left leg) Neurological: Yes: Fully Oriented, Normal Mood/Affect, Normal Response Integumentary: Yes: Normal Color, Dry, Warm Pertinent Past History: time for discharge 35 minutes - Physical Exam Results Vital Signs: Vital Signs Temperature 97.2 F L 06/06/20 05:36 Pulse Rate 60 06/06/20 05:36 Respiratory Rate 16 06/06/20 05:36 Blood Pressure 96/68 06/06/20 06:43 O2 Sat by Pulse Oximetry (%) 94 L 06/06/20 05:36 Pertinent Admission Physical Exam Findings: opiate withdrawal Vital Signs - 24 hr 06/05/20 06/05/20 06/05/20 12:29 16:37 20:43 Temperature 96.9 F L 96.8 F L 97.2 F L Pulse Rate 48 L 65 60 Respiratory 18 18 16 Rate Blood Pressure 119/76 110/69 112/76 O2 Sat by Pulse 98 99 Oximetry (%) 06/06/20 06/06/20 05:36 06:43 Temperature 97.2 F L Pulse Rate 60 Respiratory 16 Rate Blood Pressure 112/76 96/68 O2 Sat by Pulse 94 L Oximetry (%) Laboratory Tests 06/02/20 06/02/20 06/03/20 18:00 20:25 08:10 WBC RBC Hgb Hct MCV MCH MCHC RDW Plt Count MPV Sodium Potassium Chloride Carbon Dioxide Anion Gap BUN Creatinine Est GFR (CKD-EPI)AfAm Est GFR (CKD-EPI)NonAf Random Glucose Calcium Total Bilirubin AST ALT Alkaline Phosphatase Total Protein Albumin POC Urine HCG, Qual Negative Syphilis Serology Non-reactive COVID-19 ([facility]) Not detected 06/03/20 06/03/20 08:10 08:10 WBC 5.6 RBC 4.62 Hgb 14.0 Hct 42.5 MCV 92.0 MCH 30.2 MCHC 32.8 RDW 13.3 Plt Count 301 MPV 7.5 Sodium 139 Potassium 4.1 Chloride 105 Carbon Dioxide 27 Anion Gap 7 L BUN 24.9 H Creatinine 1.1 Est GFR (CKD-EPI)AfAm 64.54 Est GFR (CKD-EPI)NonAf 55.69 Random Glucose 92 Calcium 8.5 Total Bilirubin 0.8 AST 17 ALT 22 Alkaline Phosphatase 51 Total Protein 6.0 L Albumin 3.2 L POC Urine HCG, Qual Syphilis Serology COVID-19 ([facility]) lab noted - Treatment Hospital Course: Detox Protocol Followed, Detoxed Safely, Responded well, Discharged Condition Good, Rehab Referral Accepted Patient has Accepted a Rehab Referral to: [facility] - Medication Discharge Medications: Ambulatory Orders Zolpidem Tartrate 10 mg PO HS 04/09/18 Escitalopram Oxalate [Lexapro -] 10 mg PO DAILY 05/30/18 Aripiprazole [Abilify] 5 mg PO DAILY 11/12/19 Albuterol Sulfate Inhaler - [Ventolin HFA Inhaler -] 2 puff IH Q4H PRN #1 inhaler 06/05/20 Naloxone HCl [Narcan] 4 mg NS ASDIR PRN #1 spray 06/05/20 - Diagnosis (1) Opioid use disorder Status: Acute (2) Asthma Status: Chronic Qualifiers: Asthma severity: mild Asthma persistence: persistent Asthma complication type: uncomplicated Qualified Code(s): J45.30 - Mild persistent asthma, uncomplicated (3) Hepatitis C Status: Chronic Qualifiers: Viral hepatitis chronicity: carrier Qualified Code(s): B18.2 - Chronic viral hepatitis C (4) Nicotine dependence Status: Acute Qualifiers: Nicotine product type: cigarettes Substance use status: in withdrawal Qualified Code(s): F17.213 - Nicotine dependence, cigarettes, with withdrawal (5) Substance induced mood disorder Status: Suspected - AMA Did Patient Leave Against Medical Advice: No COWS (PN) - Opiate Withdrawal Resting Pulse: 0= [place] 80 or Below Sweatin= No chills or Flushing Restless Observation: 0= Sits Still Pupil Size: 0= Normal to Room Light Bone or Joint Aches: 1= Mild Discomfort Runny Nose/ Eye Tearin= None GI Upset > 30mins: 0= None Tremor Observation of Outstretched Hands: 1= Tremor [place], Not Seen Yawning Observation: 0= None Anxiety or Irritability: 1=Feels Anxious/Irritable Goose Flesh Skin: 0=Smooth Skin COWS Score: 3
[2020-06-06 09:57] VITALS: BP 109/83; PULSE 57
[2020-06-06] MEDS ORDERED: METHADONE HCL 5 MG TABLET (FOR DETOX USE ONLY) PO ONE (10:00)
--- NOTE | 2020-06-06 11:45 | EKG ---
Test Reason : Blood Pressure : / mmHG Vent. Rate : 046 BPM Atrial Rate : 046 BPM P-R Int : 142 ms QRS Dur : 080 ms QT Int : 446 ms P-R-T Axes : 023 036 039 degrees QTc Int : 390 ms SINUS BRADYCARDIA OTHERWISE NORMAL ECG WHEN COMPARED WITH ECG OF 12-NOV-2019 09:46, NO SIGNIFICANT CHANGE WAS FOUND Confirmed by IZABEL ERVIN MD ([id number]) on 06/06/2020 11:44:30 AM Referred By: Adam Sultana Confirmed By:IZABEL ERVIN MD
--- NOTE | 2020-06-06 16:56 | PN ---
S Progress Note Note: Psychiatry Attending's note : Not seen. Patient got discharged. Left unit prior arrival of psychiatrist. Scripts for : lexapro 5 mg/day + abilify 5 mg/day. Sent electronically to : [facility] ([phone].
== END 2020-06-06 09:31 | disposition home or self-care (01) | DRG 773 ==
LOC: YASAS 17:14 → Y3N 22:06
PROVIDERS: ADMIT Allergy & Immunology; ATTEND Allergy & Immunology
PROC: HZ2ZZZZ Detoxification Services for Substance Abuse Treatment (ICD-10-PCS; principal; 2020-06-02)
DX: F11.23 Opioid dependence with withdrawal (principal); F17.210 Nicotine dependence, cigarettes, uncomplicated; F31.77 Bipolar disorder, in partial remission, most recent episode mixed; F41.9 Anxiety disorder, unspecified; J45.30 Mild persistent asthma, uncomplicated; K21.9 Gastro-esophageal reflux disease without esophagitis; E78.5 Hyperlipidemia, unspecified; B18.2 Chronic viral hepatitis C; M54.5 Low back pain; G89.29 Other chronic pain; M50.20 Other cervical disc displacement, unspecified cervical region; M06.9 Rheumatoid arthritis, unspecified; Z88.0 Allergy status to penicillin; Z91.012 Allergy to eggs; Z91.011 Allergy to milk products
CPT/HCPCS: 36415; 80053; 81025; 85027; 86780; 93005; 93010; U0003

== ENCOUNTER 2021-06-25 11:37 | Inpatient (IN) | payer OTHER ==
[2021-06-25 12:54] VITALS: BMI 25.4
[2021-06-25] MEDS ORDERED: MAGNESIUM CITRATE 300 ML BOTTLE PO PRN (14:47)
[2021-06-25] MEDS ORDERED: IBUPROFEN 400 MG TABLET (FP) PO PRN (14:47)
[2021-06-25] MEDS ORDERED: NICOTINE 10 MG CARTRIDGE (INHALER) IH PRN (14:47)
[2021-06-25] MEDS ORDERED: BISMUTH SUBSALICYLATE 524 MG/30 ML PO PRN (14:47)
[2021-06-25] MEDS ORDERED: MAG HYDROX/AL HYDROX/SIMETH 30 ML UNIT-DOSE CUP PO PRN (14:47)
[2021-06-25] MEDS ORDERED: MENTHOL/PHENOL 1 EACH UD MM PRN (14:47)
[2021-06-25] MEDS ORDERED: MAGNESIUM HYDROX 2400MG/30ML ORAL SUSPENSION 30 ML CUP PO PRN (14:47)
[2021-06-25] MEDS ORDERED: cloNIDine HCL 0.1 MG TABLET PO PRN (14:47)
[2021-06-25] MEDS ORDERED: ACETAMINOPHEN 325 MG TABLET (FP) PO PRN ×2 (14:47)
[2021-06-25] MEDS ORDERED: METHOCARBAMOL 500 MG TABLET PO PRN (14:47)
[2021-06-25] MEDS ORDERED: methaDONE HCL 10 MG TABLET (FOR DETOX USE ONLY) PO ONE (15:00)
[2021-06-25] MEDS ORDERED: ALBUTEROL SO4 HFA INHALER IH PRN (18:33)
[2021-06-25] MEDS: MELATONIN 5 MG TABLETS PO SCH (22:08)
[2021-06-25] MEDS: THIAMINE HCL 100 MG TABLET (FP) PO SCH (22:08)
[2021-06-26] MEDS ORDERED: methaDONE HCL 10 MG TABLET (FOR DETOX USE ONLY) ONE (08:41)
[2021-06-26] MEDS: PRENATAL VITAMINS W/ FOLIC ACID TABLET (FP) PO SCH (10:04)
[2021-06-26 10:27] LABS: HEMATOCRIT 39.3 % (32.4-45.2); HEMOGLOBIN 13.1 GM/dL (10.7-15.3); MCH 30.1 pg (25.7-33.7); MCHC 33.2 g/dl (32.0-36.0); MEAN CELL VOLUME 90.6 fl (80-96); MEAN PLT VOLUME 7.7 fl (7.5-11.1); PLATELET COUNT 318 10^3/uL (134-434); RBC 4.34 M/mm3 (3.60-5.2); RDW 13.1 % (11.6-15.6); WHITE BLOOD COUNT 4.1 K/mm3 (4.0-10.0)
[2021-06-26] MEDS: diazePAM 5 MG TABLET PO PRN ×2 (10:35→15:11)
[2021-06-26] MEDS: DIVALPROEX SODIUM 250 MG TABLET E.C. PO SCH ×2 (10:35→22:25)
[2021-06-26] MEDS: ARIPiprazole 15 MG TABLET PO SCH (10:46)
[2021-06-26 10:51] LABS: CALCIUM 9.6 mg/dL (8.5-10.1)
[2021-06-26 10:52] LABS: ALBUMIN 3.2 g/dl (3.4-5.0); BLOOD UREA NITROGEN 16.2 mg/dL (7-18)
[2021-06-26 10:55] LABS: CREATININE 0.8 mg/dL (0.55-1.3)
[2021-06-26 10:57] LABS: TOT PROT 6.7 g/dl (6.4-8.2)
[2021-06-26 11:49] LABS: HIV INTERPRETATION NEGATIVE (NEGATIVE)
[2021-06-26] MEDS ORDERED: traZODone HCL 50 MG TABLET (FP) PO SCH (22:00)
[2021-06-26] MEDS: MELATONIN 5 MG TABLETS PO SCH (22:25)
[2021-06-26] MEDS: THIAMINE HCL 100 MG TABLET (FP) PO SCH (22:25)
[2021-06-27 09:03] VITALS: BP 101/62; PULSE 57; TEMP 98.2
[2021-06-27] MEDS ORDERED: methaDONE HCL 10 MG TABLET (FOR DETOX USE ONLY) PO ONE (10:00)
[2021-06-27] MEDS: DIVALPROEX SODIUM 250 MG TABLET E.C. PO SCH (10:19)
[2021-06-27] MEDS: PRENATAL VITAMINS W/ FOLIC ACID TABLET (FP) PO SCH (10:19)
[2021-06-27] MEDS: ARIPiprazole 15 MG TABLET PO SCH (10:20)
[2021-06-27] MEDS: diazePAM 5 MG TABLET PO PRN (10:23)
[2021-06-29] MEDS ORDERED: methaDONE HCL 10 MG TABLET (FOR DETOX USE ONLY) PO ONE (10:00)
== END 2021-06-27 12:05 | disposition left against medical advice (07) | DRG 770 ==
LOC: YASAS 11:37 → Y3N 15:57
PROVIDERS: ADMIT Allergy & Immunology; ATTEND Allergy & Immunology
PROC: HZ2ZZZZ Detoxification Services for Substance Abuse Treatment (ICD-10-PCS; principal; 2021-06-25)
DX: F11.23 Opioid dependence with withdrawal (principal); F14.10 Cocaine abuse, uncomplicated; F12.20 Cannabis dependence, uncomplicated; F17.210 Nicotine dependence, cigarettes, uncomplicated; F19.282 Other psychoactive substance dependence with psychoactive substance-induced sleep disorder; F31.9 Bipolar disorder, unspecified; J45.30 Mild persistent asthma, uncomplicated; Z86.19 Personal history of other infectious and parasitic diseases; Z87.19 Personal history of other diseases of the digestive system; Z88.0 Allergy status to penicillin; Z91.011 Allergy to milk products; Z91.012 Allergy to eggs
CPT/HCPCS: 36415; 80053; 84132; 85027; 86780; 86803; 87389; 87522; C9803; U0003; U0005

== ENCOUNTER 2022-02-13 13:39 | Inpatient (IN) | payer OTHER ==
[2022-02-13] MEDS ORDERED: MAGNESIUM CITRATE 300 ML BOTTLE PO PRN (14:53)
[2022-02-13] MEDS ORDERED: METHOCARBAMOL 500 MG TABLET PO PRN (14:53)
[2022-02-13] MEDS ORDERED: DICYCLOMINE HCL 10 MG CAPSULE PO PRN (14:53)
[2022-02-13] MEDS ORDERED: ONDANSETRON *ODT* 4 MG TABLET SL PRN (14:53)
[2022-02-13] MEDS ORDERED: IBUPROFEN 400 MG TABLET (FP) PO PRN (14:53)
[2022-02-13] MEDS ORDERED: methaDONE HCL 10 MG TABLET (FOR DETOX USE ONLY) PO ONE (14:53)
[2022-02-13] MEDS ORDERED: LOPERAMIDE HCL 2 MG CAPSULE PO PRN (14:53)
[2022-02-13] MEDS ORDERED: BISMUTH SUBSALICYLATE 524 MG/30 ML PO PRN (14:53)
[2022-02-13] MEDS ORDERED: cloNIDine HCL 0.1 MG TABLET PO PRN (14:53)
[2022-02-13] MEDS ORDERED: MAG HYDROX/AL HYDROX/SIMETH 30 ML UNIT-DOSE CUP PO PRN (14:53)
[2022-02-13] MEDS ORDERED: NICOTINE 10 MG CARTRIDGE (INHALER) IH PRN (14:53)
[2022-02-13] MEDS ORDERED: ACETAMINOPHEN 325 MG TABLET (FP) PO PRN (14:53)
[2022-02-13] MEDS ORDERED: BENZOCAINE/MENTHOL (CHLORASEPTIC ) LOZENGE MM PRN (14:53)
[2022-02-13] MEDS ORDERED: NALOXONE HCL (KLOXXADO) 8 MG SPRAY NS PRN (14:53)
[2022-02-13 15:27] VITALS: BMI 28.1
[2022-02-13] MEDS: hydrOXYzine PAMOATE 25 MG CAPSULE (FP) PO SCH ×2 (18:21→22:39)
[2022-02-13] MEDS: NICOTINE 14 MG/24 HOURS TOPICAL PATCH TD SCH (18:31)
[2022-02-13] MEDS ORDERED: ALBUTEROL SO4 HFA INHALER IH ONE (19:18)
[2022-02-13] MEDS: LORATADINE 10 MG TABLET PO SCH (19:19)
[2022-02-13] MEDS ORDERED: ALBUTEROL SO4 HFA INHALER IH PRN (19:42)
[2022-02-13] MEDS: MELATONIN 5 MG TABLETS PO SCH (22:38)
[2022-02-13] MEDS: THIAMINE HCL 100 MG TABLET (FP) PO SCH (22:38)
[2022-02-14] MEDS: hydrOXYzine PAMOATE 25 MG CAPSULE (FP) PO SCH ×5 (05:42→22:32)
[2022-02-14] MEDS ORDERED: methaDONE HCL 10 MG TABLET (FOR DETOX USE ONLY) ONE (09:13)
[2022-02-14] MEDS: LORATADINE 10 MG TABLET PO SCH (10:14)
[2022-02-14] MEDS: PRENATAL VITAMINS W/ FOLIC ACID TABLET (FP) PO SCH (10:14)
[2022-02-14] MEDS: NICOTINE 14 MG/24 HOURS TOPICAL PATCH TD SCH (10:39)
[2022-02-14 10:58] LABS: HEMATOCRIT 40.2 % (32.4-45.2); HEMOGLOBIN 13.1 GM/dL (10.7-15.3); MCHC 32.6 g/dl (32.0-36.0); MEAN CELL VOLUME 92.1 fl (80-96); MEAN PLT VOLUME 7.2 fl (7.5-11.1); PLATELET COUNT 278 10^3/uL (134-434); RBC 4.37 M/mm3 (3.60-5.2); RDW 13.7 % (11.6-15.6); WHITE BLOOD COUNT 3.7 K/mm3 (4.0-10.0)
[2022-02-14 11:02] LABS: CHLORIDE 103 mmol/L (98-107); SODIUM 141 mmol/L (136-145)
[2022-02-14 11:11] LABS: CALCIUM 9.1 mg/dL (8.5-10.1)
[2022-02-14 11:12] LABS: ALBUMIN 3.2 g/dl (3.4-5.0); ANION GAP 4 MMOL/L (8-16); BLOOD UREA NITROGEN 15.4 mg/dL (7-18); CO2 33 mmol/L (21-32); GLUCOSE,RANDOM 94 mg/dL (74-106)
[2022-02-14 11:15] LABS: CREATININE 0.9 mg/dL (0.55-1.3); SGOT/AST 17 U/L (15-37); SGPT/ALT 19 U/L (13-61)
[2022-02-14 11:17] LABS: BILIRUBIN,TOTAL 0.8 mg/dL (0.2-1); TOT PROT 6.1 g/dl (6.4-8.2)
[2022-02-14 11:18] LABS: ALK PHOS 56 U/L (45-117)
[2022-02-14 11:42] LABS: ERYTHROCYTE SEDIMENTATION RATE 5 mm/hr (0-30)
[2022-02-14] MEDS: BUDESONIDE/FORMETEROL FUMARATE 160/4.5 mcg INHALER IH SCH ×2 (12:32→22:52)
[2022-02-14] MEDS: TIOTROPIUM BROMIDE 2.5 MCG (SPIRIVA) RESPIMAT INHALER IH SCH (12:33)
[2022-02-14] MEDS ORDERED: COLLOIDAL OATMEAL 1 BAR EACH TP PRN (14:48)
[2022-02-14] MEDS: HYDROCORTISONE 1% TOPICAL OINT 30 GM TUBE TP PRN (17:03)
[2022-02-14] MEDS: MAGNESIUM HYDROX 2400MG/30ML ORAL SUSPENSION 30 ML CUP PO PRN (21:06)
[2022-02-14] MEDS: DIVALPROEX SODIUM 500 MG TABLET E.C. PO SCH (22:31)
[2022-02-14] MEDS: THIAMINE HCL 100 MG TABLET (FP) PO SCH (22:32)
[2022-02-14] MEDS: MELATONIN 5 MG TABLETS PO SCH (22:32)
[2022-02-14] MEDS: traZODone HCL 50 MG TABLET (FP) PO SCH (22:32)
[2022-02-15] MEDS: hydrOXYzine PAMOATE 25 MG CAPSULE (FP) PO SCH ×5 (07:24→22:38)
[2022-02-15] MEDS ORDERED: methaDONE HCL 10 MG TABLET (FOR DETOX USE ONLY) PO ONE (10:00)
[2022-02-15 10:31] LABS: URINE APPEARANCE CLEAR; URINE BILIRUBIN NEGATIVE (NEGATIVE); URINE COLOR YELLOW; URINE GLUCOSE (UA) NEGATIVE (NEGATIVE); URINE KETONE NEGATIVE (NEGATIVE); URINE LEUK ESTERASE NEGATIVE (NEGATIVE); URINE NITRITE NEGATIVE (NEGATIVE); URINE PROTEIN NEGATIVE (NEGATIVE); URINE UROBILINOGEN 0.2 mg/dL (0.2-1.0)
[2022-02-15] MEDS: ACETAMINOPHEN 325 MG TABLET (FP) PO PRN ×2 (10:32→18:21)
[2022-02-15] MEDS: LORATADINE 10 MG TABLET PO SCH (10:32)
[2022-02-15] MEDS: PRENATAL VITAMINS W/ FOLIC ACID TABLET (FP) PO SCH (10:32)
[2022-02-15] MEDS: PARoxetine HCL 10 MG TABLET PO SCH (10:33)
[2022-02-15] MEDS: DIVALPROEX SODIUM 500 MG TABLET E.C. PO SCH ×2 (10:34→22:38)
[2022-02-15] MEDS: BUDESONIDE/FORMETEROL FUMARATE 160/4.5 mcg INHALER IH SCH ×2 (10:34→23:16)
[2022-02-15] MEDS: TIOTROPIUM BROMIDE 2.5 MCG (SPIRIVA) RESPIMAT INHALER IH SCH (10:34)
[2022-02-15] MEDS: NICOTINE 14 MG/24 HOURS TOPICAL PATCH TD SCH (10:34)
[2022-02-15] MEDS: HYDROCORTISONE 1% TOPICAL OINT 30 GM TUBE TP PRN ×2 (10:36→18:23)
[2022-02-15] MEDS: ARTIFICIAL TEARS (POLYVINYL ALCOHOL) OPTH DROPS OU PRN (18:18)
[2022-02-15] MEDS: MAGNESIUM HYDROX 2400MG/30ML ORAL SUSPENSION 30 ML CUP PO PRN (18:25)
[2022-02-15] MEDS: MELATONIN 5 MG TABLETS PO SCH (22:37)
[2022-02-15] MEDS: traZODone HCL 50 MG TABLET (FP) PO SCH (22:38)
[2022-02-15] MEDS: THIAMINE HCL 100 MG TABLET (FP) PO SCH (22:38)
[2022-02-16] MEDS: hydrOXYzine PAMOATE 25 MG CAPSULE (FP) PO SCH ×5 (06:40→22:30)
[2022-02-16] MEDS ORDERED: methaDONE HCL 10 MG TABLET (FOR DETOX USE ONLY) ONE (09:39)
[2022-02-16] MEDS: TIOTROPIUM BROMIDE 2.5 MCG (SPIRIVA) RESPIMAT INHALER IH SCH (10:46)
[2022-02-16] MEDS: LORATADINE 10 MG TABLET PO SCH (10:46)
[2022-02-16] MEDS: DIVALPROEX SODIUM 500 MG TABLET E.C. PO SCH ×2 (10:46→22:30)
[2022-02-16] MEDS: MAGNESIUM HYDROX 2400MG/30ML ORAL SUSPENSION 30 ML CUP PO PRN (10:47)
[2022-02-16] MEDS: BUDESONIDE/FORMETEROL FUMARATE 160/4.5 mcg INHALER IH SCH ×2 (10:48→22:31)
[2022-02-16] MEDS: PARoxetine HCL 10 MG TABLET PO SCH (10:48)
[2022-02-16] MEDS: NICOTINE 14 MG/24 HOURS TOPICAL PATCH TD SCH (10:48)
[2022-02-16] MEDS: PRENATAL VITAMINS W/ FOLIC ACID TABLET (FP) PO SCH (10:48)
[2022-02-16] MEDS ORDERED: LACTULOSE 20 GM/30 ML UDC (FOR ORAL USE ONLY) PO ONE (11:44)
[2022-02-16] MEDS: PSYLLIUM 5.85 GM PACKET PO SCH ×2 (12:25→12:49)
[2022-02-16] MEDS: ACETAMINOPHEN 325 MG TABLET (FP) PO PRN (14:13)
[2022-02-16] MEDS: CALAMINE 8% TOPICAL LOTION 177 ML BOTTLE TP PRN (19:03)
[2022-02-16] MEDS: traZODone HCL 50 MG TABLET (FP) PO SCH (22:30)
[2022-02-16] MEDS: MELATONIN 5 MG TABLETS PO SCH (22:30)
[2022-02-16] MEDS: ARTIFICIAL TEARS (POLYVINYL ALCOHOL) OPTH DROPS OU PRN (22:30)
[2022-02-16] MEDS: THIAMINE HCL 100 MG TABLET (FP) PO SCH (22:51)
[2022-02-17] MEDS: hydrOXYzine PAMOATE 25 MG CAPSULE (FP) PO SCH ×5 (06:40→22:22)
[2022-02-17] MEDS ORDERED: methaDONE HCL 10 MG TABLET (FOR DETOX USE ONLY) PO ONE (10:00)
[2022-02-17] MEDS: DIVALPROEX SODIUM 500 MG TABLET E.C. PO SCH ×2 (11:33→22:22)
[2022-02-17] MEDS: LORATADINE 10 MG TABLET PO SCH (11:33)
[2022-02-17] MEDS: PRENATAL VITAMINS W/ FOLIC ACID TABLET (FP) PO SCH (11:35)
[2022-02-17] MEDS: PARoxetine HCL 10 MG TABLET PO SCH (11:35)
[2022-02-17] MEDS: TIOTROPIUM BROMIDE 2.5 MCG (SPIRIVA) RESPIMAT INHALER IH SCH (11:36)
[2022-02-17] MEDS: BUDESONIDE/FORMETEROL FUMARATE 160/4.5 mcg INHALER IH SCH ×2 (11:36→22:22)
[2022-02-17] MEDS: NICOTINE 14 MG/24 HOURS TOPICAL PATCH TD SCH (11:39)
[2022-02-17] MEDS: PSYLLIUM 5.85 GM PACKET PO SCH (12:30)
[2022-02-17] MEDS: traZODone HCL 50 MG TABLET (FP) PO SCH (22:22)
[2022-02-17] MEDS: THIAMINE HCL 100 MG TABLET (FP) PO SCH (22:22)
[2022-02-17] MEDS: MELATONIN 5 MG TABLETS PO SCH (22:22)
[2022-02-18] MEDS: hydrOXYzine PAMOATE 25 MG CAPSULE (FP) PO SCH ×2 (05:55→09:24)
[2022-02-18 09:06] VITALS: PULSE 58; TEMP 97.7
[2022-02-18 09:10] VITALS: BP 102/58
[2022-02-18] MEDS: NICOTINE 14 MG/24 HOURS TOPICAL PATCH TD SCH (09:19)
[2022-02-18] MEDS: PSYLLIUM 5.85 GM PACKET PO SCH (09:19)
[2022-02-18] MEDS: BUDESONIDE/FORMETEROL FUMARATE 160/4.5 mcg INHALER IH SCH (09:22)
[2022-02-18] MEDS: DIVALPROEX SODIUM 500 MG TABLET E.C. PO SCH (09:22)
[2022-02-18] MEDS: LORATADINE 10 MG TABLET PO SCH (09:22)
[2022-02-18] MEDS: TIOTROPIUM BROMIDE 2.5 MCG (SPIRIVA) RESPIMAT INHALER IH SCH (09:22)
[2022-02-18] MEDS: PARoxetine HCL 10 MG TABLET PO SCH (09:23)
[2022-02-18] MEDS: PRENATAL VITAMINS W/ FOLIC ACID TABLET (FP) PO SCH (09:23)
[2022-02-18] MEDS: CALAMINE 8% TOPICAL LOTION 177 ML BOTTLE TP PRN (09:26)
== END 2022-02-18 10:00 | disposition home or self-care (01) | DRG 773 ==
LOC: YASAS 13:39 → Y6N 16:25 → Y3N 17:17
PROVIDERS: ADMIT Allergy & Immunology; ATTEND Allergy & Immunology
PROC: HZ2ZZZZ Detoxification Services for Substance Abuse Treatment (ICD-10-PCS; principal; 2022-02-13)
DX: F11.23 Opioid dependence with withdrawal (principal); F17.210 Nicotine dependence, cigarettes, uncomplicated; F31.9 Bipolar disorder, unspecified; F19.24 Other psychoactive substance dependence with psychoactive substance-induced mood disorder; J45.30 Mild persistent asthma, uncomplicated; M51.26 Other intervertebral disc displacement, lumbar region; M50.20 Other cervical disc displacement, unspecified cervical region; K59.03 Drug induced constipation; L30.9 Dermatitis, unspecified; M51.24 Other intervertebral disc displacement, thoracic region; M54.50 Low back pain, unspecified; G89.29 Other chronic pain; Z88.0 Allergy status to penicillin; Z91.011 Allergy to milk products; Z91.014 Allergy to mammalian meats
CPT/HCPCS: 36415; 73630-TC-LT; 73630-TC-RT-FY; 80053; 80164; 81003; 83036; 84443; 85027; 85651; 86140; 86780; C9803-CS; J0735; U0003; U0005

== ENCOUNTER 2022-06-29 11:12 | Inpatient (IN) | payer OTHER ==
[2022-06-29 11:51] VITALS: BMI 23.4
[2022-06-29] MEDS ORDERED: BISMUTH SUBSALICYLATE 262 MG/15 ML BTL PO PRN (12:34)
[2022-06-29] MEDS ORDERED: cloNIDine HCL 0.1 MG TABLET PO PRN (12:34)
[2022-06-29] MEDS ORDERED: NICOTINE 10 MG CARTRIDGE (INHALER) IH PRN (12:34)
[2022-06-29] MEDS ORDERED: MAGNESIUM CITRATE 300 ML BOTTLE PO PRN (12:34)
[2022-06-29] MEDS ORDERED: ACETAMINOPHEN 325 MG TABLET (FP) PO PRN (12:34)
[2022-06-29] MEDS ORDERED: BENZOCAINE/MENTHOL (CHLORASEPTIC ) LOZENGE MM PRN (12:34)
[2022-06-29] MEDS ORDERED: NALOXONE HCL (KLOXXADO) 8 MG SPRAY NS PRN (12:34)
[2022-06-29] MEDS ORDERED: methaDONE HCL 10 MG TABLET (FOR DETOX USE ONLY) PO ONE (12:34)
[2022-06-29] MEDS ORDERED: LOPERAMIDE HCL 2 MG CAPSULE PO PRN (12:34)
[2022-06-29] MEDS ORDERED: MAG HYDROX/AL HYDROX/SIMETH 30 ML UNIT-DOSE CUP PO PRN (12:34)
[2022-06-29] MEDS ORDERED: MAGNESIUM HYDROX 2400MG/30ML ORAL SUSPENSION 30 ML CUP PO PRN (12:34)
[2022-06-29] MEDS: hydrOXYzine PAMOATE 25 MG CAPSULE (FP) PO SCH ×3 (13:19→22:17)
[2022-06-29] MEDS: PRENATAL VITAMINS W/ FOLIC ACID TABLET (FP) PO SCH (13:19)
[2022-06-29] MEDS: NICOTINE 14 MG/24 HOURS TOPICAL PATCH TD SCH (13:19)
[2022-06-29] MEDS: ACETAMINOPHEN 325 MG TABLET (FP) PO PRN (14:27)
[2022-06-29 14:28] LABS: HEMATOCRIT 39.5 % (32.4-45.2); MCH 29.8 pg (25.7-33.7); MEAN CELL VOLUME 90.4 fl (80-96); MEAN PLT VOLUME 6.8 fl (7.5-11.1); PLATELET COUNT 529 10^3/uL (134-434); RBC 4.37 M/mm3 (3.60-5.2); RDW 14.5 % (11.6-15.6); WHITE BLOOD COUNT 9.7 K/mm3 (4.0-10.0)
[2022-06-29 14:35] LABS: BLOOD UREA NITROGEN 11.7 mg/dL (7-18); CALCIUM 9.3 mg/dL (8.5-10.1)
[2022-06-29 14:39] LABS: BILIRUBIN,TOTAL 0.4 mg/dL (0.2-1); TOT PROT 6.6 g/dl (6.4-8.2)
[2022-06-29] MEDS: IBUPROFEN 400 MG TABLET (FP) PO PRN (21:25)
[2022-06-29] MEDS: THIAMINE HCL 100 MG TABLET (FP) PO SCH (22:17)
[2022-06-29] MEDS: DIVALPROEX SODIUM 250 MG TABLET E.C. PO SCH (22:17)
[2022-06-29] MEDS: traZODone HCL 50 MG TABLET (FP) PO SCH (22:17)
[2022-06-29] MEDS: MELATONIN 5 MG TABLETS PO SCH (22:17)
[2022-06-29] MEDS: ALBUTEROL SO4 HFA INHALER IH PRN (22:18)
[2022-06-30] MEDS: hydrOXYzine PAMOATE 25 MG CAPSULE (FP) PO SCH ×6 (06:23→22:13)
[2022-06-30] MEDS: PRENATAL VITAMINS W/ FOLIC ACID TABLET (FP) PO SCH (10:26)
[2022-06-30] MEDS: ARIPiprazole 2 MG TABLET PO SCH (10:26)
[2022-06-30] MEDS: DIVALPROEX SODIUM 250 MG TABLET E.C. PO SCH ×2 (10:26→22:13)
[2022-06-30] MEDS: PANTOPRAZOLE 40 MG TABLET PO SCH (10:26)
[2022-06-30] MEDS: BUDESONIDE/FORMETEROL FUMARATE 160/4.5 mcg INHALER IH SCH (11:10)
[2022-06-30] MEDS: NICOTINE 14 MG/24 HOURS TOPICAL PATCH TD SCH (11:11)
[2022-06-30] MEDS: ACETAMINOPHEN 325 MG TABLET (FP) PO PRN (19:51)
[2022-06-30] MEDS: THIAMINE HCL 100 MG TABLET (FP) PO SCH (22:13)
[2022-06-30] MEDS: traZODone HCL 50 MG TABLET (FP) PO SCH (22:13)
[2022-06-30] MEDS: MELATONIN 5 MG TABLETS PO SCH (22:13)
[2022-07-01] MEDS: hydrOXYzine PAMOATE 25 MG CAPSULE (FP) PO SCH ×5 (06:15→22:18)
[2022-07-01] MEDS ORDERED: methaDONE HCL 10 MG TABLET (FOR DETOX USE ONLY) PO ONE (10:00)
[2022-07-01] MEDS: PRENATAL VITAMINS W/ FOLIC ACID TABLET (FP) PO SCH (10:13)
[2022-07-01] MEDS: NICOTINE 14 MG/24 HOURS TOPICAL PATCH TD SCH (10:14)
[2022-07-01] MEDS: DIVALPROEX SODIUM 250 MG TABLET E.C. PO SCH ×2 (10:14→22:16)
[2022-07-01] MEDS: BUDESONIDE/FORMETEROL FUMARATE 160/4.5 mcg INHALER IH SCH (10:14)
[2022-07-01] MEDS: PANTOPRAZOLE 40 MG TABLET PO SCH (10:14)
[2022-07-01] MEDS: ARIPiprazole 2 MG TABLET PO SCH (10:15)
[2022-07-01] MEDS ORDERED: COLLOIDAL OATMEAL 1 BAR EACH TP PRN (11:33)
[2022-07-01] MEDS: AMMONIUM LACTATE 12% LOTION 225 GM BOTTLE TP SCH ×2 (14:52→22:17)
[2022-07-01] MEDS: BACITRACIN 15 GM TUBE TOPICAL OINTMENT TP SCH ×2 (14:53→22:16)
[2022-07-01] MEDS: ONDANSETRON *ODT* 4 MG TABLET SL PRN (19:53)
[2022-07-01] MEDS ORDERED: INSULIN SLIDING SCALE (NOVOLOG) 1 VIAL SQ ONE (21:57)
[2022-07-01] MEDS: traZODone HCL 50 MG TABLET (FP) PO SCH (22:16)
[2022-07-01] MEDS: THIAMINE HCL 100 MG TABLET (FP) PO SCH (22:16)
[2022-07-01] MEDS: MELATONIN 5 MG TABLETS PO SCH (22:17)
[2022-07-02] MEDS: METHOCARBAMOL 500 MG TABLET PO PRN ×2 (01:59→23:49)
[2022-07-02] MEDS: IBUPROFEN 400 MG TABLET (FP) PO PRN (01:59)
[2022-07-02] MEDS: hydrOXYzine PAMOATE 25 MG CAPSULE (FP) PO SCH ×5 (06:11→22:18)
[2022-07-02] MEDS: IBUPROFEN 600 MG TABLET (FP) PO PRN (08:08)
[2022-07-02] MEDS: PRENATAL VITAMINS W/ FOLIC ACID TABLET (FP) PO SCH (10:10)
[2022-07-02] MEDS: DIVALPROEX SODIUM 250 MG TABLET E.C. PO SCH ×2 (10:11→22:18)
[2022-07-02] MEDS: PANTOPRAZOLE 40 MG TABLET PO SCH (10:11)
[2022-07-02] MEDS: NICOTINE 14 MG/24 HOURS TOPICAL PATCH TD SCH (10:11)
[2022-07-02] MEDS: ARIPiprazole 2 MG TABLET PO SCH (10:11)
[2022-07-02] MEDS: BACITRACIN 15 GM TUBE TOPICAL OINTMENT TP SCH ×2 (10:12→22:17)
[2022-07-02] MEDS: BUDESONIDE/FORMETEROL FUMARATE 160/4.5 mcg INHALER IH SCH (10:12)
[2022-07-02] MEDS: AMMONIUM LACTATE 12% LOTION 225 GM BOTTLE TP SCH ×2 (10:15→22:18)
[2022-07-02 10:51] LABS: BASO % 0.8 % (0-2.0); EOS % 0.8 % (0-4.5); HEMATOCRIT 43.9 % (32.4-45.2); LYMPH % 29.8 % (8-40); MCH 29.1 pg (25.7-33.7); MEAN PLT VOLUME 6.6 fl (7.5-11.1); MONO % 5.2 % (3.8-10.2); NEUT % 63.4 % (42.8-82.8); PLATELET COUNT 789 10^3/uL (134-434); RBC 4.82 M/mm3 (3.60-5.2); RDW 14.4 % (11.6-15.6); WHITE BLOOD COUNT 8.2 K/mm3 (4.0-10.0)
[2022-07-02] MEDS: CARBAMIDE PEROXIDE 6.5% OTIC 15 ML BOTTLE AU SCH ×2 (13:03→22:19)
[2022-07-02] MEDS: DICYCLOMINE HCL 10 MG CAPSULE PO PRN (18:01)
[2022-07-02] MEDS: ONDANSETRON *ODT* 4 MG TABLET SL PRN (20:22)
[2022-07-02] MEDS: THIAMINE HCL 100 MG TABLET (FP) PO SCH (22:18)
[2022-07-02] MEDS: MELATONIN 5 MG TABLETS PO SCH (22:18)
[2022-07-02] MEDS: traZODone HCL 50 MG TABLET (FP) PO SCH (22:19)
[2022-07-03] MEDS: hydrOXYzine PAMOATE 25 MG CAPSULE (FP) PO SCH ×5 (05:33→21:59)
[2022-07-03] MEDS: ALBUTEROL SO4 HFA INHALER IH PRN (05:33)
[2022-07-03] MEDS: METHOCARBAMOL 500 MG TABLET PO PRN ×2 (05:33→22:01)
[2022-07-03] MEDS ORDERED: methaDONE HCL 10 MG TABLET (FOR DETOX USE ONLY) PO ONE (10:00)
[2022-07-03] MEDS: PRENATAL VITAMINS W/ FOLIC ACID TABLET (FP) PO SCH (10:07)
[2022-07-03] MEDS: AMMONIUM LACTATE 12% LOTION 225 GM BOTTLE TP SCH ×2 (10:08→22:00)
[2022-07-03] MEDS: PANTOPRAZOLE 40 MG TABLET PO SCH (10:08)
[2022-07-03] MEDS: BACITRACIN 15 GM TUBE TOPICAL OINTMENT TP SCH ×2 (10:08→22:00)
[2022-07-03] MEDS: DIVALPROEX SODIUM 250 MG TABLET E.C. PO SCH ×2 (10:08→21:59)
[2022-07-03] MEDS: ARIPiprazole 2 MG TABLET PO SCH (10:08)
[2022-07-03] MEDS: NICOTINE 14 MG/24 HOURS TOPICAL PATCH TD SCH (10:09)
[2022-07-03] MEDS: CARBAMIDE PEROXIDE 6.5% OTIC 15 ML BOTTLE AU SCH ×2 (10:13→22:00)
[2022-07-03] MEDS: BUDESONIDE/FORMETEROL FUMARATE 160/4.5 mcg INHALER IH SCH (10:13)
[2022-07-03] MEDS: DICYCLOMINE HCL 10 MG CAPSULE PO PRN (14:29)
[2022-07-03] MEDS: IBUPROFEN 600 MG TABLET (FP) PO PRN (17:34)
[2022-07-03] MEDS: THIAMINE HCL 100 MG TABLET (FP) PO SCH (21:59)
[2022-07-03] MEDS: traZODone HCL 50 MG TABLET (FP) PO SCH (21:59)
[2022-07-03] MEDS: MELATONIN 5 MG TABLETS PO SCH (21:59)
[2022-07-03] MEDS: ACETAMINOPHEN 325 MG TABLET (FP) PO PRN (23:34)
[2022-07-04] MEDS: hydrOXYzine PAMOATE 25 MG CAPSULE (FP) PO SCH ×3 (06:31→14:11)
[2022-07-04 09:15] VITALS: BP 141/80; PULSE 75; RESP 16; TEMP 97.8
[2022-07-04] MEDS: CARBAMIDE PEROXIDE 6.5% OTIC 15 ML BOTTLE AU SCH (09:16)
[2022-07-04] MEDS: BACITRACIN 15 GM TUBE TOPICAL OINTMENT TP SCH (09:17)
[2022-07-04] MEDS: ARIPiprazole 2 MG TABLET PO SCH (09:17)
[2022-07-04] MEDS: BUDESONIDE/FORMETEROL FUMARATE 160/4.5 mcg INHALER IH SCH (09:17)
[2022-07-04] MEDS: ALBUTEROL SO4 HFA INHALER IH PRN (09:17)
[2022-07-04] MEDS: DIVALPROEX SODIUM 250 MG TABLET E.C. PO SCH (09:18)
[2022-07-04] MEDS: PANTOPRAZOLE 40 MG TABLET PO SCH (09:18)
[2022-07-04] MEDS: PRENATAL VITAMINS W/ FOLIC ACID TABLET (FP) PO SCH (09:18)
[2022-07-04] MEDS: NICOTINE 14 MG/24 HOURS TOPICAL PATCH TD SCH (09:18)
[2022-07-04] MEDS: AMMONIUM LACTATE 12% LOTION 225 GM BOTTLE TP SCH (09:19)
== END 2022-07-04 09:28 | disposition home or self-care (01) | DRG 773 ==
LOC: YASAS 11:12 → Y3N 12:24
PROVIDERS: ADMIT Allergy & Immunology; ATTEND Surgery
PROC: HZ2ZZZZ Detoxification Services for Substance Abuse Treatment (ICD-10-PCS; principal; 2022-06-29)
DX: F11.23 Opioid dependence with withdrawal (principal); F17.210 Nicotine dependence, cigarettes, uncomplicated; F31.9 Bipolar disorder, unspecified; F41.9 Anxiety disorder, unspecified; E78.5 Hyperlipidemia, unspecified; E88.09 Other disorders of plasma-protein metabolism, not elsewhere classified; D72.89 Other specified disorders of white blood cells; Z86.19 Personal history of other infectious and parasitic diseases; Z88.0 Allergy status to penicillin; Z91.011 Allergy to milk products; Z91.012 Allergy to eggs
CPT/HCPCS: 36415; 80053; 85025; 85027; 86780; 93005; 93010; C9803-CS; Q0162; U0003; U0005

== ENCOUNTER 2023-03-22 14:08 | Inpatient (IN) | payer OTHER ==
[2023-03-22 16:58] VITALS: BMI 26.9
[2023-03-22] MEDS ORDERED: ALBUTEROL SO4 HFA INHALER IH PRN (18:27)
[2023-03-22] MEDS ORDERED: LOPERAMIDE HCL 2 MG CAPSULE PO PRN (18:44)
[2023-03-22] MEDS ORDERED: NALOXONE HCL (KLOXXADO) 8 MG SPRAY NS PRN (18:44)
[2023-03-22] MEDS ORDERED: BENZONATATE 200 MG CAPSULE PO PRN (18:44)
[2023-03-22] MEDS ORDERED: P-EPHED 60MG/TRIPROLIDI 2.5MG TABLET PO PRN (18:44)
[2023-03-22] MEDS ORDERED: POLYETHYLENE GLYCOL (HEALTHYLAX) 3350 17 GM PACKET PO PRN (18:44)
[2023-03-22] MEDS ORDERED: NICOTINE POLACRILEX 2 MG GUM BUC PRN (18:44)
[2023-03-22] MEDS ORDERED: IBUPROFEN 600 MG TABLET (FP) PO PRN (18:44)
[2023-03-22] MEDS ORDERED: guaiFENesin 600 MG TABLET.ER (FP) PO PRN (18:44)
[2023-03-22] MEDS ORDERED: MAG HYDROX/AL HYDROX/SIMETH 30 ML UNIT-DOSE CUP PO PRN (18:44)
[2023-03-22] MEDS ORDERED: ACETAMINOPHEN 325 MG TABLET (FP) PO PRN (18:44)
[2023-03-22] MEDS ORDERED: IBUPROFEN 400 MG TABLET (FP) PO PRN (18:44)
[2023-03-22] MEDS ORDERED: NALOXONE HCL 0.4 MG/ML VIAL IM PRN (18:44)
[2023-03-22] MEDS ORDERED: ONDANSETRON *ODT* 4 MG TABLET SL PRN (18:44)
[2023-03-22] MEDS ORDERED: hydrOXYzine PAMOATE 25 MG CAPSULE (FP) PO PRN (18:44)
[2023-03-22] MEDS ORDERED: DICYCLOMINE HCL 10 MG CAPSULE PO PRN (18:44)
[2023-03-22] MEDS ORDERED: MAGNESIUM HYDROX 2400MG/30ML ORAL SUSPENSION 30 ML CUP PO PRN (18:44)
[2023-03-22] MEDS ORDERED: NICOTINE 10 MG CARTRIDGE (INHALER) IH PRN (18:44)
[2023-03-22] MEDS ORDERED: BENZOCAINE/MENTHOL (CHLORASEPTIC ) LOZENGE MM PRN (18:44)
[2023-03-22] MEDS ORDERED: BISMUTH SUBSALICYLATE 524 MG/30 ML PO PRN (18:44)
[2023-03-22] MEDS ORDERED: COLLOIDAL OATMEAL 1 BAR EACH TP PRN (19:08)
[2023-03-22] MEDS: PANTOPRAZOLE 40 MG TABLET PO SCH (19:50)
[2023-03-22] MEDS ORDERED: traZODone HCL 50 MG TABLET (FP) PO ONE (22:00)
[2023-03-22] MEDS ORDERED: MELATONIN 5 MG TABLETS PO SCH (22:00)
[2023-03-22] MEDS: THIAMINE HCL 100 MG TABLET (FP) PO SCH (22:22)
[2023-03-23] MEDS: PANTOPRAZOLE 40 MG TABLET PO SCH (10:04)
[2023-03-23] MEDS: PRENATAL VITAMINS W/ FOLIC ACID TABLET (FP) PO SCH (10:04)
[2023-03-23] MEDS: BUDESONIDE/FORMETEROL FUMARATE 160/4.5 mcg INHALER IH SCH (10:05)
[2023-03-23] MEDS: NICOTINE 14 MG/24 HOURS TOPICAL PATCH TD SCH (10:05)
[2023-03-23] MEDS ORDERED: methaDONE HCL 10 MG TABLET (FOR DETOX USE ONLY) PO ONE (10:26)
[2023-03-23] MEDS ORDERED: cloNIDine HCL 0.1 MG TABLET PO PRN (10:26)
[2023-03-23] MEDS ORDERED: ARIPiprazole 2 MG TABLET PO SCH (11:00)
[2023-03-23 12:40] LABS: HEMATOCRIT 42.3 % (32.4-45.2); MCHC 33.2 g/dl (32.0-36.0); MEAN CELL VOLUME 90.3 fl (80-96); PLATELET COUNT 355 10^3/uL (134-434); POTASSIUM 5.4 mmol/L (3.5-5.1); RBC 4.68 M/mm3 (3.60-5.2); RDW 13.2 % (11.6-15.6); WHITE BLOOD COUNT 6.3 K/mm3 (4.0-10.0)
[2023-03-23 12:43] LABS: ALBUMIN 3.1 g/dl (3.4-5.0); BLOOD UREA NITROGEN 17.5 mg/dL (7-18); CALCIUM 9.6 mg/dL (8.5-10.1)
[2023-03-23 12:46] LABS: CREATININE 1.1 mg/dL (0.55-1.3)
[2023-03-23 12:47] LABS: BILIRUBIN,TOTAL 0.8 mg/dL (0.2-1); TOT PROT 6.2 g/dl (6.4-8.2)
[2023-03-23] MEDS: THIAMINE HCL 100 MG TABLET (FP) PO SCH (22:23)
[2023-03-23] MEDS: traZODone HCL 50 MG TABLET (FP) PO SCH (22:23)
[2023-03-24] MEDS: BUDESONIDE/FORMETEROL FUMARATE 160/4.5 mcg INHALER IH SCH (10:15)
[2023-03-24] MEDS: PANTOPRAZOLE 40 MG TABLET PO SCH (10:17)
[2023-03-24] MEDS: PRENATAL VITAMINS W/ FOLIC ACID TABLET (FP) PO SCH (10:17)
[2023-03-24] MEDS: ARIPiprazole 10 MG TABLET PO SCH (10:17)
[2023-03-24] MEDS: METHOCARBAMOL 500 MG TABLET PO PRN ×2 (10:17→22:39)
[2023-03-24] MEDS: NICOTINE 14 MG/24 HOURS TOPICAL PATCH TD SCH (10:18)
[2023-03-24 12:12] LABS: POTASSIUM 5.4 mmol/L (3.5-5.1)
[2023-03-24 12:19] LABS: BLOOD UREA NITROGEN 17.5 mg/dL (7-18); CALCIUM 9.5 mg/dL (8.5-10.1)
[2023-03-24] MEDS ORDERED: SODIUM POLYSTYRENE SULFONATE 15 GM/60 ML BOTTLE PO ONE (14:30)
[2023-03-24] MEDS: THIAMINE HCL 100 MG TABLET (FP) PO SCH (22:38)
[2023-03-24] MEDS: traZODone HCL 50 MG TABLET (FP) PO SCH (22:38)
[2023-03-25 09:13] VITALS: BP 118/72; PULSE 66; RESP 18; TEMP 98
[2023-03-25] MEDS ORDERED: methaDONE HCL 10 MG TABLET (FOR DETOX USE ONLY) PO ONE (10:00)
[2023-03-25] MEDS: ARIPiprazole 10 MG TABLET PO SCH (10:47)
[2023-03-25] MEDS: PRENATAL VITAMINS W/ FOLIC ACID TABLET (FP) PO SCH (10:48)
[2023-03-25] MEDS: NICOTINE 14 MG/24 HOURS TOPICAL PATCH TD SCH (10:48)
[2023-03-25] MEDS: BUDESONIDE/FORMETEROL FUMARATE 160/4.5 mcg INHALER IH SCH (10:48)
[2023-03-25] MEDS: PANTOPRAZOLE 40 MG TABLET PO SCH (10:48)
[2023-03-27] MEDS ORDERED: methaDONE HCL 10 MG TABLET (FOR DETOX USE ONLY) PO ONE (10:00)
== END 2023-03-25 09:55 | disposition left against medical advice (07) | DRG 770 ==
LOC: YASAS 14:08 → Y3N 19:20
PROVIDERS: ADMIT Allergy & Immunology; ATTEND Surgery
PROC: HZ2ZZZZ Detoxification Services for Substance Abuse Treatment (ICD-10-PCS; principal; 2023-03-22)
DX: F11.23 Opioid dependence with withdrawal (principal); F14.20 Cocaine dependence, uncomplicated; F12.20 Cannabis dependence, uncomplicated; F31.77 Bipolar disorder, in partial remission, most recent episode mixed; F19.282 Other psychoactive substance dependence with psychoactive substance-induced sleep disorder; F19.24 Other psychoactive substance dependence with psychoactive substance-induced mood disorder; F41.9 Anxiety disorder, unspecified; E87.5 Hyperkalemia; J45.30 Mild persistent asthma, uncomplicated; M54.50 Low back pain, unspecified; G89.29 Other chronic pain; Z87.11 Personal history of peptic ulcer disease; Z86.19 Personal history of other infectious and parasitic diseases; Z88.0 Allergy status to penicillin; Z91.011 Allergy to milk products; Z91.012 Allergy to eggs
CPT/HCPCS: 36415; 80048; 80053; 85027; 86780; 87635; 87811; 93005; 93010